=== PATIENT | male | born 1965 | race Caucasian/White ===

== ENCOUNTER 2017-01-31 13:39 | Emergency (ER) | payer MEDICAID ==
--- NOTE | 2017-01-31 13:57 | EDM.PDOC ---
ED HPI GENERAL MEDICAL PROBLEM - General Chief Complaint: Drug or Alcohol Abuse Stated Complaint: ANXIETY, ALCOHOL ABUSE & WITHDRAWALS Time Seen by Provider: 01/31/17 13:55 Source of Information: Reports: Patient, Family (), Old Records, RN, RN Notes Reviewed History Limitations: Reports: No Limitations - History of Present Illness Onset: Gradual Duration: Day(s): Location: Reports: Generalized Severity: Severe Improves with: Reports: None Worsens with: Reports: None Context: Reports: Other (recent alcohol binge) Associated Symptoms: Reports: No Other Symptoms - Related Data Allergies Allergy/AdvReac Type Severity Reaction Status Date / Time No Known Allergies Allergy Verified 06/04/16 06:40 Home Meds: Home Meds atorvaSTATin [Lipitor] 10 mg PO DAILY 10/02/13 [History] metFORMIN [Glucophage] 1,000 mg PO BID 10/02/13 [History] Atenolol [Tenormin] 50 mg PO DAILY 04/01/14 [History] Omeprazole [Omeprazole] 20 mg PO BID 04/01/14 [History] Jennings Flavor [Jennings Concentrate] 1 cap PO DAILY 05/31/16 [History] Hydrochlorothiazide 25 mg PO DAILY 05/31/16 [History] Losartan Potassium 100 mg PO DAILY 05/31/16 [History] QUEtiapine Fumarate [Quetiapine Fumarate] 150 mg PO BEDTIME 05/31/16 [History] Past Medical History Other HEENT History: reading glasses Cardiovascular History: Reports: High Cholesterol, Hypertension Respiratory History: Reports: None Gastrointestinal History: Reports: Hiatal Hernia, Other (See Below) Other Gastrointestinal History: DUNN ESOPHAGUS, alcoholic hepatitis Genitourinary History: Reports: None Musculoskeletal History: Reports: Arthritis, Other (See Below) Other Musculoskeletal History: HX OF ACROMIOCLAVICULAR JOINT SEPERATION; DEGENERATIVE DISC DISEASE, LUMBAR Neurological History: Reports: None Psychiatric History: Reports: Addiction, Depression, Panic Attack, Other (See Below) Other Psychiatric History: HX OF ALCOHOL AND TOBACCO HABITUATION Endocrine/Metabolic History: Reports: Diabetes, Type II, Obesity/BMI 30+ Hematologic History: Reports: Other (See Below) Other Hematologic History: THROMBOCYTOPENIA Immunologic History: Reports: None Oncologic (Cancer) History: Reports: None Dermatologic History: Reports: None - Infectious Disease History Infectious Disease History: Reports: Chicken Pox - Past Surgical History HEENT Surgical History: Reports: None Cardiovascular Surgical History: Reports: None Respiratory Surgical History: Reports: None GI Surgical History: Reports: None, EGD Male Surgical History: Reports: None Musculoskeletal Surgical History: Reports: None Social & Family History - Family History Family Medical History: Unobtainable - Tobacco Use Smoking Status *Q: Former Smoker Years of Tobacco use: 40 Packs/Tins Daily: 0.5 Second Hand Smoke Exposure: No - Caffeine Use Caffeine Use: Reports: Coffee - Alcohol Use Days Per Week of Alcohol Use: 7 Number of Drinks Per Day: 7 Total Drinks Per Week: 49 - Recreational Drug Use Recreational Drug Use: No Drug Use in Last 12 Months: No Recreational Drug Type: Reports: Marijuana/Hashish Recreational Drug Use Frequency: Not Used In Over 1 Month - Living Situation & Occupation Living situation: Reports: Occupation: Unemployed ED ROS GENERAL - Review of Systems Review Of Systems: ROS reveals no pertinent complaints other than HPI. ED EXAM, GENERAL - Physical Exam Exam: See Below Exam Limited By: No Limitations General Appearance: Anxious, Other (chronically ill appearing) Eye Exam: Bilateral Eye: Normal Inspection Ears: Normal External Exam, Hearing Grossly Normal Nose: Normal Inspection, Normal Mucosa, No Blood Throat/Mouth: Normal Inspection, Normal Lips, Normal Gums, Normal Oropharynx, Normal Voice, No Airway Compromise Head: Atraumatic, Normocephalic Neck: Normal Inspection, Supple, Non-Tender, Full Range of Motion Respiratory/Chest: No Respiratory Distress, Lungs Clear, No Accessory Muscle Use , Decreased Breath Sounds Cardiovascular: Regular Rate, Rhythm, Tachycardia GI/Abdominal: Soft, Non-Tender, No Distention, No Abnormal Bruit, Abnormal Bowel Sounds (slightly hyperactive). No: Guarding, Rigid, Rebound (Male) Exam: Deferred Rectal (Males) Exam: Deferred Back Exam: Normal Inspection, Full Range of Motion. No: CVA Tenderness (L), CVA Tenderness (R) Extremities: Normal Inspection, Normal Range of Motion, Non-Tender, Normal Capillary Refill, No Pedal Edema Neurological: Alert, Oriented, CN II-XII Intact, Normal Cognition, Normal Gait, No Motor/Sensory Deficits, Other (slight tremor of B/L upper extremities) Psychiatric: Anxious Skin Exam: Warm, Dry, Intact, Normal Color, No Rash Course - Vital Signs Last Recorded V/S: Last Vital Signs Temp 36.9 C 01/31/17 13:55 Pulse 87 01/31/17 13:55 Resp 16 01/31/17 13:55 BP 150/89 H 01/31/17 13:55 Pulse Ox 99 01/31/17 13:55 - Orders/Labs/Meds Orders: Active Orders 24 hr Category Date Time Status Peripheral IV Care [RC] . DIRECTED Care 01/31/17 14:03 Active Sodium Chloride 0.9% [Saline Flush] Med 01/31/17 14:03 Active 10 ml FLUSH ASDIRECTED PRN Peripheral IV Insertion Adult [OM.PC] Stat Oth 01/31/17 14:03 Ordered Medication Orders Sodium Chloride (Saline Flush) 10 ml FLUSH ASDIRECTED PRN PRN Reason: Keep Vein Open Last Admin: 01/31/17 15:05 Dose: 10 ml Labs: Laboratory Tests 01/31/17 01/31/17 01/31/17 Range/Units 14:09 14:09 14:12 WBC 9.6 (5.0-10.0) 10^3/uL RBC 4.64 (4.6-6.2) 10^6/uL Hgb 15.1 (14.0-18.0) g/dL Hct 42.6 (40.0-54.0) % MCV 91.8 (80-100) fL MCH 32.5 (27.0-34.0) pg MCHC 35.4 H (33.0-35.0) g/dL Plt Count 203 (150-450) 10^3/uL Neut % (Auto) 58.1 (42.2-75.2) % Lymph % (Auto) 31.9 (20.5-50.1) % [place] % (Auto) 8.0 (2-8) % Eos % (Auto) 1.4 (1.0-3.0) % Baso % (Auto) 0.6 (0.0-1.0) % Sodium (135-145) mmol/L Potassium (3.6-5.0) mmol/L Chloride (101-111) mmol/L Carbon Dioxide (21.0-31.0) mmol/L Anion Gap BUN (7-18) mg/dL Creatinine (0.6-1.3) mg/dL Est Cr Clr Drug Dosing mL/min Estimated GFR (MDRD) BUN/Creatinine Ratio Glucose (74-105) mg/dL Calcium (8.4-10.2) mg/dl Total Bilirubin (0.2-1.0) mg/dL AST (10-42) IU/L ALT (10-60) IU/L Alkaline Phosphatase (42-121) IU/L Total Protein (6.7-8.2) g/dl Albumin (3.2-5.5) g/dl Globulin Albumin/Globulin Ratio Amylase (28-100) U/L Lipase (22-51) U/L Urine Color Dark yellow (YELLOW) Urine Appearance Slightly cloudy (CLEAR) Urine pH 8.5 (5.0-9.0) Ur Specific Hoffman 1.015 (1.005-1.030) Urine Protein 100 H (NEGATIVE) Urine Glucose (UA) Negative (NEGATIVE) Urine Ketones 15 H (NEGATIVE) Urine Occult Blood Negative (NEGATIVE) Urine Nitrite Negative (NEGATIVE) Urine Bilirubin Small H (NEGATIVE) Urine Urobilinogen 1.0 (0.2-1.0) mg/dL Ur Leukocyte Esterase Negative (NEGATIVE) Urine RBC 0-5 /HPF Urine WBC 0-5 (0-5/HPF) /HPF Ur Epithelial Cells Rare /HPF Amorphous Sediment Rare (0/HPF) /HPF Urine Bacteria Not seen (0-FEW/HPF) /HPF Urine Mucus Few H /LPF Urine Opiates Screen Negative (NEGATIVE) Ur Oxycodone Screen Negative (NEGATIVE) Urine Methadone Screen Negative (NEGATIVE) Ur Barbiturates Screen Negative (NEGATIVE) U Tricyclic Antidepress Negative (NEGATIVE) Ur Phencyclidine Scrn Negative (NEGATIVE) Ur Amphetamine Screen Negative (NEGATIVE) U Methamphetamines Scrn Negative (NEGATIVE) Urine MDMA Screen Negative (NEGATIVE) U Benzodiazepines Scrn Negative (NEGATIVE) Urine Cocaine Screen Negative (NEGATIVE) U Marijuana (THC) Screen Positive H (NEGATIVE) Ethyl Alcohol mg/dL 01/31/17 Range/Units 14:12 WBC (5.0-10.0) 10^3/uL RBC (4.6-6.2) 10^6/uL Hgb (14.0-18.0) g/dL Hct (40.0-54.0) % MCV (80-100) fL MCH (27.0-34.0) pg MCHC (33.0-35.0) g/dL Plt Count (150-450) 10^3/uL Neut % (Auto) (42.2-75.2) % Lymph % (Auto) (20.5-50.1) % [place] % (Auto) (2-8) % Eos % (Auto) (1.0-3.0) % Baso % (Auto) (0.0-1.0) % Sodium 140 (135-145) mmol/L Potassium 3.7 (3.6-5.0) mmol/L Chloride 99 L (101-111) mmol/L Carbon Dioxide 21.0 (21.0-31.0) mmol/L Anion Gap 23.7 BUN 13 (7-18) mg/dL Creatinine 1.1 (0.6-1.3) mg/dL Est Cr Clr Drug Dosing 78.56 mL/min Estimated GFR (MDRD) > 60 BUN/Creatinine Ratio 11.81 Glucose 162 H (74-105) mg/dL Calcium 9.0 (8.4-10.2) mg/dl Total Bilirubin 0.6 (0.2-1.0) mg/dL AST 49 H (10-42) IU/L ALT 34 (10-60) IU/L Alkaline Phosphatase 58 (42-121) IU/L Total Protein 7.0 (6.7-8.2) g/dl Albumin 4.2 (3.2-5.5) g/dl Globulin 2.8 Albumin/Globulin Ratio 1.50 Amylase 107 H (28-100) U/L Lipase 74 H (22-51) U/L Urine Color (YELLOW) Urine Appearance (CLEAR) Urine pH (5.0-9.0) Ur Specific Hoffman (1.005-1.030) Urine Protein (NEGATIVE) Urine Glucose (UA) (NEGATIVE) Urine Ketones (NEGATIVE) Urine Occult Blood (NEGATIVE) Urine Nitrite (NEGATIVE) Urine Bilirubin (NEGATIVE) Urine Urobilinogen (0.2-1.0) mg/dL Ur Leukocyte Esterase (NEGATIVE) Urine RBC /HPF Urine WBC (0-5/HPF) /HPF Ur Epithelial Cells /HPF Amorphous Sediment (0/HPF) /HPF Urine Bacteria (0-FEW/HPF) /HPF Urine Mucus /LPF Urine Opiates Screen (NEGATIVE) Ur Oxycodone Screen (NEGATIVE) Urine Methadone Screen (NEGATIVE) Ur Barbiturates Screen (NEGATIVE) U Tricyclic Antidepress (NEGATIVE) Ur Phencyclidine Scrn (NEGATIVE) Ur Amphetamine Screen (NEGATIVE) U Methamphetamines Scrn (NEGATIVE) Urine MDMA Screen (NEGATIVE) U Benzodiazepines Scrn (NEGATIVE) Urine Cocaine Screen (NEGATIVE) U Marijuana (THC) Screen (NEGATIVE) Ethyl Alcohol 84 mg/dL Meds: Medications Generic Name Dose Route Start Last Admin Trade Name Freq PRN Reason Stop Dose Admin Sodium Chloride 10 ml 01/31/17 14:03 01/31/17 15:05 Saline Flush FLUSH 10 ml ASDIRECTED PRN Administration Keep Vein Open Discontinued Medications Generic Name Dose Route Start Last Admin Trade Name Freq PRN Reason Stop Dose Admin Multivitamins/Minerals 10 ml/ 1,011.2 mls @ 999 mls/hr 01/31/17 14:03 15:07 Thiamine HCl 100 mg/ Folic IV 01/31/17 15:03 999 mls/hr Acid 1 mg/ Lactated Ringer's .BOLUS ONE Administration Lorazepam 2 mg 01/31/17 14:09 01/31/17 15:03 Ativan IVPUSH 01/31/17 14:10 2 mg ONETIME ONE Administration Ondansetron HCl 4 mg 01/31/17 14:09 01/31/17 15:06 Zofran IV 01/31/17 14:10 4 mg ONETIME ONE Administration Departure - Departure Time of Disposition: 15:51 Disposition: Home, Self-Care 01 Condition: Fair Clinical Impression: Alcohol abuse, Anxiety Alcohol withdrawal syndrome Qualifiers: Complication of substance-induced condition: uncomplicated Qualified Code(s): F10.230 - Alcohol dependence with withdrawal, uncomplicated - Discharge Information Instructions: Alcohol Use Disorder, Alcohol Intoxication, [id number] Forms: ED Department Discharge Additional Instructions: Rx: Librium 25mg *Do not drive while under the influence of this medication. Rx: Zofran 4mg Abstain from consuming alcohol. Follow up in clinic this week with your doctor for recheck. Return to ER if worse at any time. - My Orders Last 24 Hours: My Active Orders 01/31/17 14:03 Peripheral IV Care [RC] . DIRECTED Sodium Chloride 0.9% [Saline Flush] 10 ml FLUSH ASDIRECTED PRN Peripheral IV Insertion Adult [OM.PC] Stat - Assessment/Plan Last 24 Hours: My Active Orders 09/11/17 14:03 Peripheral IV Care [RC] . DIRECTED Sodium Chloride 0.9% [Saline Flush] 10 ml FLUSH ASDIRECTED PRN Peripheral IV Insertion Adult [OM.PC] Stat
[2017-01-31 13:59] VITALS: BP 150/89
[2017-01-31] MEDS ORDERED: MVI, Adult with Vitamin K 10 ML, Thiamine 100 MG, Folic Acid 1 MG in Lactated Ringers 1... IV ONE ×4 (14:03)
[2017-01-31] MEDS ORDERED: Sodium Chloride 0.9% 10 ML Syringe FLUSH PRN (14:03)
[2017-01-31] MEDS ORDERED: Ondansetron 4 MG/2 ML SDV IV ONE (14:09)
[2017-01-31] MEDS ORDERED: LORazepam 2 MG/ML Syringe IVPUSH ONE (14:09)
[2017-01-31 14:44] LABS: CHLORIDE,CL 99 mmol/L (101-111); SODIUM,NA 140 mmol/L (135-145)
== END 2017-01-31 16:25 | disposition home or self-care (01) ==
LOC: DL.ED 13:39
DX: F10.230 Alcohol dependence with withdrawal, uncomplicated (principal); F41.9 Anxiety disorder, unspecified; E78.00 Pure hypercholesterolemia, unspecified; I10 Essential (primary) hypertension; M19.90 Unspecified osteoarthritis, unspecified site; E11.9 Type 2 diabetes mellitus without complications; E66.9 Obesity, unspecified; Z79.899 Other long term (current) drug therapy; Z87.891 Personal history of nicotine dependence
CPT/HCPCS: 36415; 80053; 80305; 81001; 82150; 83690; 85025; 96365; 96375; 99284; G0480; J2060; J2405; J3411; J7050; J7120; J3490

== ENCOUNTER 2017-03-19 05:14 | Emergency (ER) | payer MEDICAID ==
[2017-03-19] MEDS ORDERED: Ondansetron 4 MG/2 ML SDV IV ONE (05:27)
[2017-03-19] MEDS ORDERED: MVI, Adult with Vitamin K 10 ML, Thiamine 100 MG, Folic Acid 1 MG in Lactated Ringers 1... IV ONE ×4 (05:33)
--- NOTE | 2017-03-19 05:35 | EDM.PDOC ---
ED HPI GENERAL MEDICAL PROBLEM - General Chief Complaint: Gastrointestinal Problem Stated Complaint: VOMITING Time Seen by Provider: 03/19/17 05:34 Source of Information: Reports: Patient History Limitations: Reports: No Limitations - History of Present Illness INITIAL COMMENTS - FREE TEXT/NARRATIVE: going through alcohol detox. Epigastric Pain Score (Numeric/FACES): 7 - Related Data Allergies Allergy/AdvReac Type Severity Reaction Status Date / Time No Known Allergies Allergy Verified 03/19/17 05:26 Home Meds: Home Meds atorvaSTATin [Lipitor] 10 mg PO DAILY 10/02/13 [History] metFORMIN [Glucophage] 1,000 mg PO BID 10/02/13 [History] Atenolol [Tenormin] 50 mg PO DAILY 04/01/14 [History] Omeprazole [Omeprazole] 20 mg PO BID 04/01/14 [History] Jennings Flavor [Jennings Concentrate] 1 cap PO DAILY 05/31/16 [History] Hydrochlorothiazide 25 mg PO DAILY 05/31/16 [History] Losartan Potassium 100 mg PO DAILY 05/31/16 [History] QUEtiapine Fumarate [Quetiapine Fumarate] 150 mg PO BEDTIME 05/31/16 [History] Past Medical History Other HEENT History: reading glasses Cardiovascular History: Reports: High Cholesterol, Hypertension Respiratory History: Reports: None Gastrointestinal History: Reports: Hiatal Hernia, Other (See Below) Other Gastrointestinal History: DUNN ESOPHAGUS, alcoholic hepatitis Genitourinary History: Reports: None Musculoskeletal History: Reports: Arthritis, Other (See Below) Other Musculoskeletal History: HX OF ACROMIOCLAVICULAR JOINT SEPERATION; DEGENERATIVE DISC DISEASE, LUMBAR Neurological History: Reports: None Psychiatric History: Reports: Addiction, Depression, Panic Attack, Other (See Below) Other Psychiatric History: HX OF ALCOHOL AND TOBACCO HABITUATION Endocrine/Metabolic History: Reports: Diabetes, Type II, Obesity/BMI 30+ Hematologic History: Reports: Other (See Below) Other Hematologic History: THROMBOCYTOPENIA Immunologic History: Reports: None Oncologic (Cancer) History: Reports: None Dermatologic History: Reports: None - Infectious Disease History Infectious Disease History: Reports: Chicken Pox - Past Surgical History HEENT Surgical History: Reports: None Cardiovascular Surgical History: Reports: None Respiratory Surgical History: Reports: None GI Surgical History: Reports: None, EGD Male Surgical History: Reports: None Musculoskeletal Surgical History: Reports: None Social & Family History - Family History Family Medical History: Unobtainable - Tobacco Use Smoking Status *Q: Current Every Day Smoker Years of Tobacco use: 40 Packs/Tins Daily: 10 Second Hand Smoke Exposure: No - Caffeine Use Caffeine Use: Reports: Coffee, Tea - Alcohol Use Days Per Week of Alcohol Use: 7 Number of Drinks Per Day: 7 Total Drinks Per Week: 49 Date of Last Drink: 03/18/17 - Recreational Drug Use Recreational Drug Use: Yes Drug Use in Last 12 Months: No Recreational Drug Type: Reports: Marijuana/Hashish Recreational Drug Use Frequency: Binges - Living Situation & Occupation Living situation: Reports: Occupation: Unemployed ED ROS GENERAL - Review of Systems Review Of Systems: ROS reveals no pertinent complaints other than HPI. ED EXAM, GI/ABD - Physical Exam Exam: See Below Exam Limited By: No Limitations General Appearance: Alert, WD/WN, Anxious, Mild Distress Ears: Hearing Grossly Normal Throat/Mouth: Normal Voice, No Airway Compromise Head: Atraumatic Neck: Non-Tender, Full Range of Motion Respiratory/Chest: No Respiratory Distress Cardiovascular: Regular Rate, Rhythm GI/Abdominal Exam: Soft, Tender, Other (epig). No: Distended, Guarding, Rigid, Rebound Neurological: Alert, Oriented, Normal Cognition, Normal Gait, No Motor/Sensory Deficits Psychiatric: Flat Affect Skin Exam: Warm, Dry, Normal Color Lymphatic: No Adenopathy Course - Vital Signs Last Recorded V/S: Last Vital Signs Temp 35.4 C 03/19/17 05:16 Pulse 112 H 03/19/17 05:16 Resp 21 H 03/19/17 05:16 BP 153/100 H 03/19/17 05:16 Pulse Ox 99 03/19/17 05:16 - Orders/Labs/Meds Labs: Laboratory Tests 03/19/17 03/19/17 Range/Units 05:20 05:20 WBC 11.8 H (5.0-10.0) 10^3/uL RBC 5.13 (4.6-6.2) 10^6/uL Hgb 16.5 (14.0-18.0) g/dL Hct 46.9 (40.0-54.0) % MCV 91.4 (80-100) fL MCH 32.2 (27.0-34.0) pg MCHC 35.2 H (33.0-35.0) g/dL Plt Count 287 D (150-450) 10^3/uL Neut % (Auto) 49.0 (42.2-75.2) % Lymph % (Auto) 40.8 (20.5-50.1) % [place] % (Auto) 8.0 (2-8) % Eos % (Auto) 1.4 (1.0-3.0) % Baso % (Auto) 0.8 (0.0-1.0) % Sodium 144 (135-145) mmol/L Potassium 3.3 L (3.6-5.0) mmol/L Chloride 98 L (101-111) mmol/L Carbon Dioxide 25.0 (21.0-31.0) mmol/L Anion Gap 24.3 BUN 13 (7-18) mg/dL Creatinine 1.1 (0.6-1.3) mg/dL Est Cr Clr Drug Dosing 78.56 mL/min Estimated GFR (MDRD) > 60 BUN/Creatinine Ratio 11.81 Glucose 145 H (74-105) mg/dL Calcium 10.4 H (8.4-10.2) mg/dl Total Bilirubin 1.0 (0.2-1.0) mg/dL AST 88 H (10-42) IU/L ALT 78 H (10-60) IU/L Alkaline Phosphatase 62 (42-121) IU/L Total Protein 8.0 (6.7-8.2) g/dl Albumin 4.9 (3.2-5.5) g/dl Globulin 3.1 Albumin/Globulin Ratio 1.58 Ethyl Alcohol 151 mg/dL Meds: Medications Discontinued Medications Generic Name Dose Route Start Last Admin Trade Name Freq PRN Reason Stop Dose Admin Chlordiazepoxide HCl 25 mg 03/19/17 06:39 Librium PO 03/19/17 06:40 ONETIME ONE Multivitamins/Minerals 10 ml/ 1,011.2 mls @ 999 mls/hr 03/19/17 05:33 05:46 Thiamine HCl 100 mg/ Folic IV 03/19/17 06:33 999 mls/hr Acid 1 mg/ Lactated Ringer's .BOLUS ONE Administration Metoclopramide HCl 10 mg 03/19/17 06:09 03/19/17 06:14 Reglan IVPUSH 03/19/17 06:10 10 mg ONETIME ONE Administration Ondansetron HCl 4 mg 03/19/17 05:27 03/19/17 05:32 Zofran IV 03/19/17 05:28 4 mg ONETIME ONE Administration - Re-Assessments/Exams Free Text/Narrative Re-Assessment/Exam: 03/19/17 06:40 results discussed with pt who is feeling much better post IV fluids. states needs to go home to care for child. Departure - Departure Time of Disposition: 06:41 Disposition: Home, Self-Care 01 Condition: Good Clinical Impression: Vomiting, Alcohol abuse - Discharge Information Instructions: Dehydration, Adult, [id number] Forms: ED Department Discharge Additional Instructions: 1) avoid solid foods next 48 hours 2) liquid diet 3) take tylenol as needed for headache 4) follow up at clinic rx given; librium 25mg tid x 12 reglan 10mg tid prn x 12
[2017-03-19 05:48] LABS: CHLORIDE,CL 98 mmol/L (101-111); SODIUM,NA 144 mmol/L (135-145)
[2017-03-19] MEDS ORDERED: Metoclopramide 10 MG/2 ML SDV IVPUSH ONE (06:09)
[2017-03-19] MEDS ORDERED: chlordiazePOXIDE 25 MG Cap PO ONE (06:39)
[2017-03-19 06:54] VITALS: BP 135/99
== END 2017-03-19 06:55 | disposition home or self-care (01) ==
LOC: DL.ED 05:14
DX: F10.10 Alcohol abuse, uncomplicated (principal); I10 Essential (primary) hypertension; F17.210 Nicotine dependence, cigarettes, uncomplicated; Z79.899 Other long term (current) drug therapy; Z79.84 Long term (current) use of oral hypoglycemic drugs
CPT/HCPCS: 36415; 80053; 85025; 96365; 96375; 99284; A9270; G0480; J2405; J2765; J3411; J7120; J3490

== ENCOUNTER 2017-11-16 06:50 | Observation (INO) | payer MEDICAID ==
[2017-11-16] MEDS ORDERED: Sodium Chloride 0.9% 10 ML Syringe FLUSH PRN (07:09)
[2017-11-16] MEDS ORDERED: Sodium Chloride 0.9% 1,000 ML IV ONE (07:10)
[2017-11-16] MEDS ORDERED: LORazepam 1 MG Tab PO ONE (07:25)
--- NOTE | 2017-11-16 07:25 | EDM.PDOCBH ---
ED HPI GENERAL MEDICAL PROBLEM - General Chief Complaint: Drug or Alcohol Abuse Stated Complaint: NOT FEELING GOOD. FEELS LIKE GOING TO STOP BREATHI Time Seen by Provider: 11/16/17 07:20 Source of Information: Reports: Patient, RN, RN Notes Reviewed History Limitations: Reports: No Limitations - History of Present Illness INITIAL COMMENTS - FREE TEXT/NARRATIVE: Patient presents to the ER with c/o headache, anxious, and feeling as though he will stop breathing if he falls asleep. Patient states he binge drinks, and recently was on a drinking binge of 4 days. He states last drink was yesterday morning. Patient admits to N/V, headache, SOB. Denies chest pain, diarrhea, fever or chills. Onset: Today, Sudden Duration: Constant Location: Reports: Head Headache Pain Score (Numeric/FACES): 10 - Related Data Allergies Allergy/AdvReac Type Severity Reaction Status Date / Time No Known Allergies Allergy Verified 11/16/17 06:57 Home Meds: Home Meds atorvaSTATin [Lipitor] 10 mg PO DAILY 10/02/13 [History] metFORMIN [Glucophage] 1,000 mg PO BID 10/02/13 [History] Atenolol [Tenormin] 50 mg PO DAILY 04/01/14 [History] Omeprazole 20 mg PO BID 04/01/14 [History] Jennings Flavor [Jennings Concentrate] 1 cap PO DAILY 05/31/16 [History] Losartan Potassium 100 mg PO DAILY 05/31/16 [History] Past Medical History Other HEENT History: reading glasses Cardiovascular History: Reports: High Cholesterol, Hypertension Respiratory History: Reports: None Gastrointestinal History: Reports: Hiatal Hernia, Other (See Below) Other Gastrointestinal History: DUNN ESOPHAGUS, alcoholic hepatitis Genitourinary History: Reports: None Musculoskeletal History: Reports: Arthritis, Other (See Below) Other Musculoskeletal History: HX OF ACROMIOCLAVICULAR JOINT SEPERATION; DEGENERATIVE DISC DISEASE, LUMBAR Neurological History: Reports: None Psychiatric History: Reports: Addiction, Depression, Panic Attack, Other (See Below) Other Psychiatric History: HX OF ALCOHOL AND TOBACCO HABITUATION Endocrine/Metabolic History: Reports: Diabetes, Type II Hematologic History: Reports: Other (See Below) Other Hematologic History: THROMBOCYTOPENIA Immunologic History: Reports: None Oncologic (Cancer) History: Reports: None Dermatologic History: Reports: None - Infectious Disease History Infectious Disease History: Reports: Chicken Pox - Past Surgical History HEENT Surgical History: Reports: None Cardiovascular Surgical History: Reports: None Respiratory Surgical History: Reports: None GI Surgical History: Reports: None, EGD Male Surgical History: Reports: None Musculoskeletal Surgical History: Reports: Shoulder Replacement Social & Family History - Family History Family Medical History: Unobtainable - Tobacco Use Smoking Status *Q: Current Every Day Smoker Years of Tobacco use: 40 Packs/Tins Daily: 1 - Caffeine Use Caffeine Use: Reports: Coffee, Tea - Recreational Drug Use Recreational Drug Use: Yes Drug Use in Last 12 Months: Yes Recreational Drug Type: Reports: Marijuana/Hashish Recreational Drug Use Frequency: Rarely - Living Situation & Occupation Living situation: Reports: Occupation: Unemployed ED ROS GENERAL - Review of Systems Review Of Systems: ROS reveals no pertinent complaints other than HPI. ED EXAM, BEHAVIORAL HEALTH - Physical Exam Exam: See Below Exam Limited By: No Limitations General Appearance: Alert, WD/WN, Mild Distress Eye Exam: Bilateral Eye: EOMI, Normal Inspection Ears: Normal External Exam, Hearing Grossly Normal Nose: Normal Inspection Throat/Mouth: Normal Inspection, Normal Voice, No Airway Compromise Head: Atraumatic, Normocephalic Neck: Normal Inspection, Supple, Non-Tender, Full Range of Motion Respiratory/Chest: No Respiratory Distress, Lungs Clear, Normal Breath Sounds, No Accessory Muscle Use, Chest Non-Tender Cardiovascular: Normal Peripheral Pulses, Regular Rate, Rhythm, No Edema, No Gallop, No JVD, No Murmur, No Rub GI/Abdominal: Normal Bowel Sounds, Soft, Non-Tender (Male) Exam: Deferred Rectal (Males) Exam: Deferred Back Exam: Normal Inspection, Full Range of Motion Extremities: Normal Inspection, Normal Range of Motion, Non-Tender, No Pedal Edema, Normal Capillary Refill Neurological: Alert, Normal Cognition, Oriented x 3 Psychiatric: Alert, Normal Cognition, Agitated Skin Exam: Warm, Dry, Intact, Normal color, No rash COURSE, BEHAVIORAL HEALTH COMP - Course Vital Signs: Last Vital Signs Temp 98 F 11/16/17 06:53 Pulse 73 11/16/17 06:53 Resp 20 11/16/17 06:53 BP 209/108 H 11/16/17 06:53 Pulse Ox 98 11/16/17 06:53 Orders, Labs, Meds: Active Orders 24 hr Category Date Time Status Peripheral IV Care [RC] . DIRECTED Care 11/16/17 07:10 Active DRUG SCREEN URINE BIORAD [URCHEM] Stat Lab 11/16/17 07:35 Ordered UA W/MICROSCOPIC [URIN] Stat Lab 11/16/17 07:35 Ordered Sodium Chloride 0.9% [Saline Flush] Med 11/16/17 07:09 Active 10 ml FLUSH ASDIRECTED PRN Peripheral IV Insertion Adult [OM.PC] Stat Oth 11/16/17 07:10 Ordered Medication Orders Sodium Chloride (Saline Flush) 10 ml FLUSH ASDIRECTED PRN PRN Reason: Keep Vein Open Last Admin: 11/16/17 07:12 Dose: 10 ml Laboratory Tests 11/16/17 11/16/17 11/16/17 Range/Units 07:11 07:11 07:35 WBC 8.0 (5.0-10.0) 10^3/uL RBC 4.35 L (4.6-6.2) 10^6/uL Hgb 14.2 D (14.0-18.0) g/dL Hct 39.0 L (40.0-54.0) % MCV 89.7 (80-100) fL MCH 32.6 (27.0-34.0) pg MCHC 36.4 H (33.0-35.0) g/dL Plt Count 177 D (150-450) 10^3/uL Neut % (Auto) 63.6 (42.2-75.2) % Lymph % (Auto) 23.5 (20.5-50.1) % [place] % (Auto) 11.2 H (2-8) % Eos % (Auto) 1.0 (1.0-3.0) % Baso % (Auto) 0.7 (0.0-1.0) % Sodium 138 (135-145) mmol/L Potassium 3.2 L (3.6-5.0) mmol/L Chloride 99 L (101-111) mmol/L Carbon Dioxide 27.0 (21.0-31.0) mmol/L Anion Gap 15.2 BUN 9 (7-18) mg/dL Creatinine 0.8 (0.6-1.3) mg/dL Est Cr Clr Drug Dosing 106.79 mL/min Estimated GFR (MDRD) > 60 BUN/Creatinine Ratio 11.25 Glucose 153 H (74-105) mg/dL Calcium 8.8 D (8.4-10.2) mg/dl Total Bilirubin 1.3 H (0.2-1.0) mg/dL AST 43 H (10-42) IU/L ALT 27 (10-60) IU/L Alkaline Phosphatase 57 (42-121) IU/L Total Protein 6.4 L (6.7-8.2) g/dl Albumin 3.9 (3.2-5.5) g/dl Globulin 2.5 Albumin/Globulin Ratio 1.56 Urine Color Yellow (YELLOW) Urine Appearance Slightly cloudy (CLEAR) Urine pH 8.0 (5.0-9.0) Ur Specific [place] 1.015 (1.005-1.030) Urine Protein Negative (NEGATIVE) Urine Glucose (UA) Negative (NEGATIVE) Urine Ketones Negative (NEGATIVE) Urine Occult Blood Negative (NEGATIVE) Urine Nitrite Negative (NEGATIVE) Urine Bilirubin Negative (NEGATIVE) Urine Urobilinogen 0.2 (0.2-1.0) mg/dL Ur Leukocyte Esterase Negative (NEGATIVE) Urine RBC 0-5 /HPF Urine WBC 0-5 (0-5/HPF) /HPF Ur Epithelial Cells Rare /HPF Urine Bacteria Rare (0-FEW/HPF) /HPF Urine Mucus Rare /LPF Urine Opiates Screen (NEGATIVE) Ur Oxycodone Screen (NEGATIVE) Urine Methadone Screen (NEGATIVE) Ur Barbiturates Screen (NEGATIVE) U Tricyclic Antidepress (NEGATIVE) Ur Phencyclidine Scrn (NEGATIVE) Ur Amphetamine Screen (NEGATIVE) U Methamphetamines Scrn (NEGATIVE) Urine MDMA Screen (NEGATIVE) U Benzodiazepines Scrn (NEGATIVE) Urine Cocaine Screen (NEGATIVE) U Marijuana (THC) Screen (NEGATIVE) Ethyl Alcohol < 5 mg/dL 11/16/17 Range/Units 07:35 WBC (5.0-10.0) 10^3/uL RBC (4.6-6.2) 10^6/uL Hgb (14.0-18.0) g/dL Hct (40.0-54.0) % MCV (80-100) fL MCH (27.0-34.0) pg MCHC (33.0-35.0) g/dL Plt Count (150-450) 10^3/uL Neut % (Auto) (42.2-75.2) % Lymph % (Auto) (20.5-50.1) % [place] % (Auto) (2-8) % Eos % (Auto) (1.0-3.0) % Baso % (Auto) (0.0-1.0) % Sodium (135-145) mmol/L Potassium (3.6-5.0) mmol/L Chloride (101-111) mmol/L Carbon Dioxide (21.0-31.0) mmol/L Anion Gap BUN (7-18) mg/dL Creatinine (0.6-1.3) mg/dL Est Cr Clr Drug Dosing mL/min Estimated GFR (MDRD) BUN/Creatinine Ratio Glucose (74-105) mg/dL Calcium (8.4-10.2) mg/dl Total Bilirubin (0.2-1.0) mg/dL AST (10-42) IU/L ALT (10-60) IU/L Alkaline Phosphatase (42-121) IU/L Total Protein (6.7-8.2) g/dl Albumin (3.2-5.5) g/dl Globulin Albumin/Globulin Ratio Urine Color (YELLOW) Urine Appearance (CLEAR) Urine pH (5.0-9.0) Ur Specific [place] (1.005-1.030) Urine Protein (NEGATIVE) Urine Glucose (UA) (NEGATIVE) Urine Ketones (NEGATIVE) Urine Occult Blood (NEGATIVE) Urine Nitrite (NEGATIVE) Urine Bilirubin (NEGATIVE) Urine Urobilinogen (0.2-1.0) mg/dL Ur Leukocyte Esterase (NEGATIVE) Urine RBC /HPF Urine WBC (0-5/HPF) /HPF Ur Epithelial Cells /HPF Urine Bacteria (0-FEW/HPF) /HPF Urine Mucus /LPF Urine Opiates Screen Negative (NEGATIVE) Ur Oxycodone Screen Negative (NEGATIVE) Urine Methadone Screen Negative (NEGATIVE) Ur Barbiturates Screen Negative (NEGATIVE) U Tricyclic Antidepress Negative (NEGATIVE) Ur Phencyclidine Scrn Negative (NEGATIVE) Ur Amphetamine Screen Negative (NEGATIVE) U Methamphetamines Scrn Negative (NEGATIVE) Urine MDMA Screen Negative (NEGATIVE) U Benzodiazepines Scrn Positive H (NEGATIVE) Urine Cocaine Screen Negative (NEGATIVE) U Marijuana (THC) Screen Positive H (NEGATIVE) Ethyl Alcohol mg/dL Medications Generic Name Dose Route Start Last Admin Trade Name Freq PRN Reason Stop Dose Admin Sodium Chloride 10 ml 11/16/17 07:09 11/16/17 07:12 Saline Flush FLUSH 10 ml ASDIRECTED PRN Administration Keep Vein Open Discontinued Medications Generic Name Dose Route Start Last Admin Trade Name Suni PRN Reason Stop Dose Admin Sodium Chloride 1,000 mls @ 999 mls/hr 11/16/17 07:10 11/16/17 07:12 Normal Saline IV 11/16/17 08:10 999 mls/hr .BOLUS ONE Administration Labetalol HCl 20 mg 11/16/17 08:51 11/16/17 09:14 Normodyne IVPUSH 11/16/17 08:52 20 mg NOW ONE Administration Protocol Lorazepam 1 mg 11/16/17 07:25 11/16/17 07:30 Ativan PO 11/16/17 07:26 1 mg ONETIME ONE Administration Lorazepam 0.5 mg 11/16/17 07:41 11/16/17 07:50 Ativan IVPUSH 11/16/17 07:42 0.5 mg ONETIME ONE Administration Ondansetron HCl 4 mg 11/16/17 07:41 11/16/17 07:48 Zofran IV 11/16/17 07:42 4 mg ONETIME ONE Administration Departure - Departure Time of Disposition: 10:17 Disposition: Refer to Observation Condition: Fair Clinical Impression: Alcohol abuse, Diabetes mellitus type 2, Alcohol withdrawal syndrome, HTN, Essential hypertension, Anxiety, Vomiting - Discharge Information Forms: ED Department Discharge - My Orders Last 24 Hours: My Active Orders 11/16/17 07:09 Sodium Chloride 0.9% [Saline Flush] 10 ml FLUSH ASDIRECTED PRN 11/16/17 07:10 Peripheral IV Care [RC] . DIRECTED Peripheral IV Insertion Adult [OM.PC] Stat 11/16/17 07:35 DRUG SCREEN URINE BIORAD [URCHEM] Stat UA W/MICROSCOPIC [URIN] Stat - Assessment/Plan Last 24 Hours: My Active Orders 11/16/17 07:09 Sodium Chloride 0.9% [Saline Flush] 10 ml FLUSH ASDIRECTED PRN 11/16/17 07:10 Peripheral IV Care [RC] . DIRECTED Peripheral IV Insertion Adult [OM.PC] Stat 11/16/17 07:35 DRUG SCREEN URINE BIORAD [URCHEM] Stat UA W/MICROSCOPIC [URIN] Stat
[2017-11-16 07:38] LABS: CHLORIDE,CL 99 mmol/L (101-111); SODIUM,NA 138 mmol/L (135-145)
[2017-11-16] MEDS ORDERED: Ondansetron 4 MG/2 ML SDV IV ONE (07:41)
[2017-11-16] MEDS ORDERED: LORazepam 2 MG/ML Syringe IVPUSH ONE (07:41)
[2017-11-16] MEDS ORDERED: Labetalol 20 MG/4 ML Syringe IVPUSH ONE (08:51)
[2017-11-16] MEDS ORDERED: Acetaminophen 325 MG Tab PO PRN (11:31)
[2017-11-16] MEDS ORDERED: Ondansetron 4 MG/2 ML SDV IVPUSH PRN (11:31)
[2017-11-16] MEDS ORDERED: LORazepam 1 MG Tab PO PRN (11:37)
[2017-11-16] MEDS ORDERED: hydrALAZINE 20 MG/ML SDV IVPUSH PRN (11:38)
[2017-11-16] MEDS ORDERED: Pantoprazole 40 MG Vial IVPUSH SCH (11:45)
--- NOTE | 2017-11-16 11:48 | PCM.HP ---
H&P History of Present Illness - General Date of Service: 11/16/17 Admit Problem/Dx: Admission Diagnosis/Problem Admission Diagnosis/Problem Alcohol abuse Source of Information: Patient History Limitations: Reports: No Limitations - History of Present Illness Initial Comments - Free Text/Narative: The patient presented to the emergency room with complaint of nausea and vomiting. He indicated that for the past 5 days he has been on an alcohol binge. Patient is a binge drinker. He would go for several months without alcohol and then go on a binge for about a week. For the past 2 days he has been vomiting has not been able to keep food down. He has associated generalized body malaise and tremulous. He has been feeling anxious and has not been able to sleep thinking that if he goes to bed he would not wake up. Denies abdominal pain at this point. Denies diarrhea. Denies chest pain. No cough and no wheezing. Patient was seen in the emergency room and noted to have significantly elevated blood pressure. He was given intravenous labetalol and blood pressure remained elevated. He continues to feel anxious hence was referred to the hospital for admission. Symptom Onset Date: 11/14/17 Severity: Moderate Associated Symptoms: Reports: Loss of Appetite, Malaise, Nausea/Vomiting Headache Pain Score (Numeric/FACES): 10 - Related Data Allergies/Adverse Reactions: Allergies Allergy/AdvReac Type Severity Reaction Status Date / Time No Known Allergies Allergy Verified 11/16/17 11:22 Home Medications: Home Meds atorvaSTATin [Lipitor] 10 mg PO DAILY 10/02/13 [History] metFORMIN [Glucophage] 1,000 mg PO BID 10/02/13 [History] Atenolol [Tenormin] 50 mg PO DAILY 04/01/14 [History] Omeprazole 20 mg PO BID 04/01/14 [History] Jennings Flavor [Jennings Concentrate] 1 cap PO DAILY 05/31/16 [History] Losartan Potassium 100 mg PO DAILY 05/31/16 [History] Past Medical History Other HEENT History: reading glasses Cardiovascular History: Reports: High Cholesterol, Hypertension Respiratory History: Reports: None Gastrointestinal History: Reports: Hiatal Hernia, Other (See Below) Other Gastrointestinal History: DUNN ESOPHAGUS, alcoholic hepatitis Genitourinary History: Reports: None Musculoskeletal History: Reports: Arthritis, Other (See Below) Other Musculoskeletal History: HX OF ACROMIOCLAVICULAR JOINT SEPERATION; DEGENERATIVE DISC DISEASE, LUMBAR Neurological History: Reports: None Psychiatric History: Reports: Addiction, Depression, Panic Attack, Other (See Below) Other Psychiatric History: HX OF ALCOHOL AND TOBACCO HABITUATION Endocrine/Metabolic History: Reports: Diabetes, Type II Hematologic History: Reports: Other (See Below) Other Hematologic History: THROMBOCYTOPENIA Immunologic History: Reports: None Oncologic (Cancer) History: Reports: None Dermatologic History: Reports: None - Infectious Disease History Infectious Disease History: Reports: Chicken Pox - Past Surgical History HEENT Surgical History: Reports: None Cardiovascular Surgical History: Reports: None Respiratory Surgical History: Reports: None GI Surgical History: Reports: None, EGD Male Surgical History: Reports: None Musculoskeletal Surgical History: Reports: Shoulder Replacement Social & Family History - Family History Family Medical History: Noncontributory - Tobacco Use Smoking Status *Q: Current Every Day Smoker Years of Tobacco use: 40 Packs/Tins Daily: 1 Used Tobacco, but Quit: No - Caffeine Use Caffeine Use: Reports: Coffee, Tea - Alcohol Use Date of Last Drink: 11/15/17 Time of Last Drink: 11:00 - Recreational Drug Use Recreational Drug Use: Yes Drug Use in Last 12 Months: Yes Recreational Drug Type: Reports: Marijuana/Hashish Recreational Drug Use Frequency: Monthly - Living Situation & Occupation Living situation: Reports: Occupation: Unemployed H&P Review of Systems - Review of Systems: Review Of Systems: See Below General: Reports: Malaise, Fatigue, Diaphoresis Pulmonary: Reports: No Symptoms Cardiovascular: Reports: No Symptoms Gastrointestinal: Reports: Anorexia, Nausea, Vomiting Genitourinary: Reports: No Symptoms Musculoskeletal: Reports: No Symptoms Skin: Reports: No Symptoms Neurological: Reports: Dizziness, Weakness Hematologic/Lymphatic: Reports: No Symptoms Exam - Exam Exam: See Below - Vital Signs Vital Signs: Last Vital Signs Temp 37.0 C 11/16/17 11:12 Pulse 71 11/16/17 11:12 Resp 20 11/16/17 11:12 BP 192/102 H 11/16/17 11:12 Pulse Ox 99 11/16/17 11:12 Weight: 96.116 kg - Exam General: Alert, Oriented, Cooperative HEENT: PERRLA, Hearing Intact, Mucosa Moist & [place], Nares Patent, Normal Nasal Septum, Posterior Pharynx Clear, Conjunctiva Clear, EOMI, EACs Clear, TMs Clear Neck: Supple, Trachea Midline, 2 Lungs: Clear to Auscultation, Normal Respiratory Effort Cardiovascular: Regular Rate, Regular Rhythm GI/Abdominal Exam: Normal Bowel Sounds, Soft, Non-Tender, No Organomegaly, No Distention, No Abnormal Bruit, No Mass, Pelvis Stable Extremities: Normal Inspection Skin: Warm, Dry, Intact Psychiatric: Anxious - Patient Data Lab Results Last 24 hrs: Laboratory Results - last 24 hr 11/16/17 11/16/17 11/16/17 Range/Units 07:11 07:11 07:35 WBC 8.0 (5.0-10.0) 10^3/uL RBC 4.35 L (4.6-6.2) 10^6/uL Hgb 14.2 D (14.0-18.0) g/dL Hct 39.0 L (40.0-54.0) % MCV 89.7 (80-100) fL MCH 32.6 (27.0-34.0) pg MCHC 36.4 H (33.0-35.0) g/dL Plt Count 177 D (150-450) 10^3/uL Neut % (Auto) 63.6 (42.2-75.2) % Lymph % (Auto) 23.5 (20.5-50.1) % [place] % (Auto) 11.2 H (2-8) % Eos % (Auto) 1.0 (1.0-3.0) % Baso % (Auto) 0.7 (0.0-1.0) % Sodium 138 (135-145) mmol/L Potassium 3.2 L (3.6-5.0) mmol/L Chloride 99 L (101-111) mmol/L Carbon Dioxide 27.0 (21.0-31.0) mmol/L Anion Gap 15.2 BUN 9 (7-18) mg/dL Creatinine 0.8 (0.6-1.3) mg/dL Est Cr Clr Drug Dosing 106.79 mL/min Estimated GFR (MDRD) > 60 BUN/Creatinine Ratio 11.25 Glucose 153 H (74-105) mg/dL POC Glucose (70-105) mg/dl Calcium 8.8 D (8.4-10.2) mg/dl Total Bilirubin 1.3 H (0.2-1.0) mg/dL AST 43 H (10-42) IU/L ALT 27 (10-60) IU/L Alkaline Phosphatase 57 (42-121) IU/L Total Protein 6.4 L (6.7-8.2) g/dl Albumin 3.9 (3.2-5.5) g/dl Globulin 2.5 Albumin/Globulin Ratio 1.56 Urine Color Yellow (YELLOW) Urine Appearance Slightly cloudy (CLEAR) Urine pH 8.0 (5.0-9.0) Ur Specific [place] 1.015 (1.005-1.030) Urine Protein Negative (NEGATIVE) Urine Glucose (UA) Negative (NEGATIVE) Urine Ketones Negative (NEGATIVE) Urine Occult Blood Negative (NEGATIVE) Urine Nitrite Negative (NEGATIVE) Urine Bilirubin Negative (NEGATIVE) Urine Urobilinogen 0.2 (0.2-1.0) mg/dL Ur Leukocyte Esterase Negative (NEGATIVE) Urine RBC 0-5 /HPF Urine WBC 0-5 (0-5/HPF) /HPF Ur Epithelial Cells Rare /HPF Urine Bacteria Rare (0-FEW/HPF) /HPF Urine Mucus Rare /LPF Urine Opiates Screen (NEGATIVE) Ur Oxycodone Screen (NEGATIVE) Urine Methadone Screen (NEGATIVE) Ur Barbiturates Screen (NEGATIVE) U Tricyclic Antidepress (NEGATIVE) Ur Phencyclidine Scrn (NEGATIVE) Ur Amphetamine Screen (NEGATIVE) U Methamphetamines Scrn (NEGATIVE) Urine MDMA Screen (NEGATIVE) U Benzodiazepines Scrn (NEGATIVE) Urine Cocaine Screen (NEGATIVE) U Marijuana (THC) Screen (NEGATIVE) Ethyl Alcohol < 5 mg/dL 11/16/17 11/16/17 Range/Units 07:35 11:07 WBC (5.0-10.0) 10^3/uL RBC (4.6-6.2) 10^6/uL Hgb (14.0-18.0) g/dL Hct (40.0-54.0) % MCV (80-100) fL MCH (27.0-34.0) pg MCHC (33.0-35.0) g/dL Plt Count (150-450) 10^3/uL Neut % (Auto) (42.2-75.2) % Lymph % (Auto) (20.5-50.1) % [place] % (Auto) (2-8) % Eos % (Auto) (1.0-3.0) % Baso % (Auto) (0.0-1.0) % Sodium (135-145) mmol/L Potassium (3.6-5.0) mmol/L Chloride (101-111) mmol/L Carbon Dioxide (21.0-31.0) mmol/L Anion Gap BUN (7-18) mg/dL Creatinine (0.6-1.3) mg/dL Est Cr Clr Drug Dosing mL/min Estimated GFR (MDRD) BUN/Creatinine Ratio Glucose (74-105) mg/dL POC Glucose 146 H (70-105) mg/dl Calcium (8.4-10.2) mg/dl Total Bilirubin (0.2-1.0) mg/dL AST (10-42) IU/L ALT (10-60) IU/L Alkaline Phosphatase (42-121) IU/L Total Protein (6.7-8.2) g/dl Albumin (3.2-5.5) g/dl Globulin Albumin/Globulin Ratio Urine Color (YELLOW) Urine Appearance (CLEAR) Urine pH (5.0-9.0) Ur Specific [place] (1.005-1.030) Urine Protein (NEGATIVE) Urine Glucose (UA) (NEGATIVE) Urine Ketones (NEGATIVE) Urine Occult Blood (NEGATIVE) Urine Nitrite (NEGATIVE) Urine Bilirubin (NEGATIVE) Urine Urobilinogen (0.2-1.0) mg/dL Ur Leukocyte Esterase (NEGATIVE) Urine RBC /HPF Urine WBC (0-5/HPF) /HPF Ur Epithelial Cells /HPF Urine Bacteria (0-FEW/HPF) /HPF Urine Mucus /LPF Urine Opiates Screen Negative (NEGATIVE) Ur Oxycodone Screen Negative (NEGATIVE) Urine Methadone Screen Negative (NEGATIVE) Ur Barbiturates Screen Negative (NEGATIVE) U Tricyclic Antidepress Negative (NEGATIVE) Ur Phencyclidine Scrn Negative (NEGATIVE) Ur Amphetamine Screen Negative (NEGATIVE) U Methamphetamines Scrn Negative (NEGATIVE) Urine MDMA Screen Negative (NEGATIVE) U Benzodiazepines Scrn Positive H (NEGATIVE) Urine Cocaine Screen Negative (NEGATIVE) U Marijuana (THC) Screen Positive H (NEGATIVE) Ethyl Alcohol mg/dL Result Diagrams: 11/16/17 07:11 11/16/17 07:11 Problem List Initiated/Reviewed/Updated: Yes Orders Last 24hrs: Active Orders 24 hr Category Date Time Status Patient Status [ADT] Routine ADT 11/16/17 11:31 Ordered Blood Glucose Check, Bedside [RC] TIDMEALS Care 11/16/17 11:31 Ordered Oxygen Therapy [RC] PRN Care 11/16/17 11:31 Ordered Peripheral IV Care [RC] . DIRECTED Care 11/16/17 07:10 Active Up ad [place] [RC] ASDIRECTED Care 11/16/17 11:31 Ordered VTE/DVT Education [RC] PER UNIT ROUTINE Care 11/16/17 11:31 Ordered Vital Signs [RC] Q4H Care 11/16/17 11:31 Ordered Consistent Carbohydrate Diet [DIET] Diet 11/16/17 Lunch Ordered COMPREHENSIVE METABOLIC PN,CMP [CHEM] AM Lab 11/17/17 05:11 Ordered DRUG SCREEN URINE BIORAD [URCHEM] Stat Lab 11/16/17 07:35 Ordered MAGNESIUM [CHEM] AM Lab 11/17/17 05:11 Ordered PHOSPHORUS [CHEM] AM Lab 11/17/17 05:11 Ordered UA W/MICROSCOPIC [URIN] Stat Lab 11/16/17 07:35 Ordered Acetaminophen [Tylenol] Med 11/16/17 11:31 Ordered 650 mg PO Q4H PRN Atenolol [Tenormin] Med 11/16/17 11:45 Ordered 50 mg PO DAILY Heparin Sodium Med 11/16/17 14:00 Ordered 5,000 units SUBCUT Q8HR LORazepam [Ativan] Med 11/16/17 11:37 Ordered 1 mg PO Q4H PRN Losartan Potassium [Losartan Potassium] Med 11/17/17 09:00 Ordered 100 mg PO DAILY Ondansetron [Zofran] Med 11/16/17 11:31 Ordered 4 mg IVPUSH Q4H PRN Pantoprazole [ProTONIX IV] Med 11/16/17 11:45 Ordered 40 mg IVPUSH DAILY Sodium Chloride 0.9% @ 125 MLS/HR (1000ml) Med 11/16/17 11:45 Ordered Sodium Chloride 0.9% [Normal Saline] 1,000 ml IV ASDIRECTED Sodium Chloride 0.9% [Saline Flush] Med 11/16/17 07:09 Active 10 ml FLUSH ASDIRECTED PRN atorvaSTATin [Lipitor] Med 11/16/17 11:45 Ordered 10 mg PO DAILY hydrALAZINE [Apresoline] Med 11/16/17 11:38 Ordered 10 mg IVPUSH Q4H PRN metFORMIN [Glucophage] Med 11/16/17 11:45 Ordered 1,000 mg PO BID Peripheral IV Insertion Adult [OM.PC] Stat Oth 11/16/17 07:10 Ordered Resuscitation Status Routine Resus Stat 11/16/17 11:31 Ordered Medication Orders Acetaminophen (Tylenol) 650 mg PO Q4H PRN PRN Reason: Pain (Mild 1-3)/fever Atenolol (Tenormin) 50 mg PO DAILY JAIME Atorvastatin Calcium (Lipitor) 10 mg PO DAILY [facility] Heparin Sodium (Porcine) (Heparin Sodium) 5,000 units SUBCUT Q8HR JAIME Hydralazine HCl (Apresoline) 10 mg IVPUSH Q4H PRN PRN Reason: For SBP> 180 Sodium Chloride (Normal Saline) 1,000 mls @ 125 mls/hr IV ASDIRECTED JAIME Lorazepam (Ativan) 1 mg PO Q4H PRN; Protocol PRN Reason: Anxiety,tremors Metformin HCl (Glucophage) 1,000 mg PO BID [facility] Non-Formulary Medication (Losartan Potassium [Losartan Potassium]) 100 mg PO DAILY [facility] Ondansetron HCl (Zofran) 4 mg IVPUSH Q4H PRN PRN Reason: Nausea/Vomiting Pantoprazole Sodium (Protonix Iv) 40 mg IVPUSH DAILY [facility] Sodium Chloride (Saline Flush) 10 ml FLUSH ASDIRECTED PRN PRN Reason: Keep Vein Open Last Admin: 11/16/17 07:12 Dose: 10 ml Assessment/Plan Comment:: Assessment/plan: #. Alcohol abuse/withdrawal while The patient has been on an alcohol binge for the past 5 days. Started having recurrent nausea and vomiting. He feels anxious at this point and his blood pressure is markedly elevated #. Poorly controlled hypertension This may be because of alcohol withdrawal while. Patient is feeling anxious and that may be a contributing factor. #. Diabetes mellitus type 2 Patient is on oral hypoglycemic agent Blood sugars have been well controlled #. Tobacco use disorder Patient smokes about half a pack of cigarettes a day. Expresses intention to quit #. Marijuana abuse Patient indicates that he smokes marijuana on a regular basis. Last use was yesterday. #. Dyslipidemia Patient has been on Lipitor #. Anxiety/depression Patient is feeling anxious at this point. Feels like if he sleeps, would not wake up Plan: Admit patient to medical floor Comments alcohol withdrawal protocol We'll use lorazepam alcohol withdrawal and Monitor blood sugar before meals Start patient back on metformin Start patient on atenolol Start patient on losartan Start intravenous hydralazine for severe hypertension Counseling provided will get alcohol and tobacco use disorder Patient's medical chart reviewed. Discussed with the emergency room physician assistant principal
[2017-11-16] MEDS: atorvaSTATin 10 MG Tab PO SCH (12:15)
[2017-11-16] MEDS: metFORMIN 500 MG Tab PO SCH ×2 (12:29→17:03)
[2017-11-16] MEDS: Sodium Chloride 0.9% 1,000 ML IV SCH ×2 (12:30→21:28)
[2017-11-16] MEDS: Atenolol 50 MG Tab PO SCH (12:30)
[2017-11-16] MEDS: Pantoprazole 40 MG Vial IVPUSH SCH (13:31)
[2017-11-16] MEDS: Heparin Sodium 5,000 Units/ML Vial SUBCUT SCH ×2 (13:34→21:25)
[2017-11-17] MEDS: Heparin Sodium 5,000 Units/ML Vial SUBCUT SCH (05:38)
[2017-11-17] MEDS: Sodium Chloride 0.9% 1,000 ML IV SCH (05:41)
[2017-11-17 06:41] LABS: CHLORIDE,CL 101 mmol/L (101-111); SODIUM,NA 137 mmol/L (135-145)
[2017-11-17] MEDS: atorvaSTATin 10 MG Tab PO SCH (08:23)
[2017-11-17] MEDS: metFORMIN 500 MG Tab PO SCH (08:23)
[2017-11-17] MEDS: Atenolol 50 MG Tab PO SCH (08:23)
[2017-11-17] MEDS: Pantoprazole 40 MG Vial IVPUSH SCH (08:25)
[2017-11-17] MEDS ORDERED: Losartan 50 MG Tab PO SCH (09:00)
--- NOTE | 2017-11-17 11:27 | PCM.DCSUM1 ---
Discharge Summary - Hospital Course Free Text/Narrative:: The patient presented to the emergency room with complaint of nausea and vomiting. He indicated that for the past 5 days [employer] he was on an alcohol binge. Patient is a binge drinker. He would go for several months without alcohol and then go on a binge for about a week. Presented with feeling anxious and markedly elevated blood pressure. Patient was in alcohol withdrawal and got admitted to the hospital. We started him on oral antihypertensives and alcohol withdrawal protocol. He has done well and will be discharged home. Counseling was provided Assessment/plan: #. Alcohol abuse/withdrawal while The patient has been on an alcohol binge for the past 5 days. Patient was having nausea vomiting anxiety and elevated blood pressure #. Poorly controlled hypertension This may be because of alcohol withdrawal #. Diabetes mellitus type 2 Patient is on oral hypoglycemic agent Blood sugars have been well controlled #. Tobacco use disorder Patient smokes about half a pack of cigarettes a day. Expresses intention to quit #. Marijuana abuse Patient indicates that he smokes marijuana on a regular basis. #. Dyslipidemia Patient has been on Lipitor #. Anxiety/depression Diagnosis: Stroke: No - Discharge Data Discharge Date: 11/17/17 Discharge Disposition: Home, Self-Care 01 Condition: Good - Discharge Plan Prescriptions/Med Rec: Atenolol [Tenormin] 50 mg PO DAILY #90 tablet Home Medications: Home Meds atorvaSTATin [Lipitor] 10 mg PO DAILY 10/02/13 [History] metFORMIN [Glucophage] 1,000 mg PO BID 10/02/13 [History] Omeprazole 20 mg PO BID 04/01/14 [History] Jennings Flavor [Jennings Concentrate] 1 cap PO DAILY 05/31/16 [History] Atenolol [Tenormin] 50 mg PO DAILY #90 tablet 11/17/17 [Rx] Losartan Potassium 100 mg PO DAILY #90 11/17/17 [Rx] Referrals: PCP,Unobtain [Primary Care Provider] - - General Info Date of Service: 11/17/17 - Review of Systems General: Reports: Malaise HEENT: Reports: No Symptoms Pulmonary: Reports: No Symptoms Cardiovascular: Reports: No Symptoms, Palpitations Gastrointestinal: Reports: No Symptoms Genitourinary: Reports: No Symptoms Musculoskeletal: Reports: No Symptoms Neurological: Reports: No Symptoms - Patient Data Vitals - Most Recent: Last Vital Signs Temp 36.9 C 11/17/17 08:00 Pulse 76 11/17/17 08:23 Resp 20 11/17/17 08:00 BP 155/96 H 11/17/17 08:24 Pulse Ox 100 11/17/17 08:00 Weight - Most Recent: 96.116 kg I&O - Last 24 hours: Intake & Output 11/16/17 11/17/17 11/17/17 22:59 06:59 14:59 Intake Total 1467 1898 130 Balance 1467 1898 130 Lab Results - Last 24 hrs: Laboratory Results - last 24 hr 11/16/17 11/17/17 11/17/17 Range/Units 16:46 06:00 08:03 Sodium 137 (135-145) mmol/L Potassium 3.1 L (3.6-5.0) mmol/L Chloride 101 (101-111) mmol/L Carbon Dioxide 26.0 (21.0-31.0) mmol/L Anion Gap 13.1 BUN 7 (7-18) mg/dL Creatinine 0.7 (0.6-1.3) mg/dL Est Cr Clr Drug Dosing 122.04 mL/min Estimated GFR (MDRD) > 60 BUN/Creatinine Ratio 10.00 Glucose 121 H (74-105) mg/dL POC Glucose 108 H 121 H (70-105) mg/dl Calcium 8.5 (8.4-10.2) mg/dl Phosphorus 3.8 (2.5-4.6) mg/dL Magnesium 0.9 L (1.8-2.5) mg/dL Total Bilirubin 1.5 H (0.2-1.0) mg/dL AST 35 (10-42) IU/L ALT 25 (10-60) IU/L Alkaline Phosphatase 57 (42-121) IU/L Total Protein 6.3 L (6.7-8.2) g/dl Albumin 3.7 (3.2-5.5) g/dl Globulin 2.6 Albumin/Globulin Ratio 1.42 11/17/17 Range/Units 11:05 Sodium (135-145) mmol/L Potassium (3.6-5.0) mmol/L Chloride (101-111) mmol/L Carbon Dioxide (21.0-31.0) mmol/L Anion Gap BUN (7-18) mg/dL Creatinine (0.6-1.3) mg/dL Est Cr Clr Drug Dosing mL/min Estimated GFR (MDRD) BUN/Creatinine Ratio Glucose (74-105) mg/dL POC Glucose 116 H (70-105) mg/dl Calcium (8.4-10.2) mg/dl Phosphorus (2.5-4.6) mg/dL Magnesium (1.8-2.5) mg/dL Total Bilirubin (0.2-1.0) mg/dL AST (10-42) IU/L ALT (10-60) IU/L Alkaline Phosphatase (42-121) IU/L Total Protein (6.7-8.2) g/dl Albumin (3.2-5.5) g/dl Globulin Albumin/Globulin Ratio Med Orders - Current: Current Medications Acetaminophen (Tylenol) 650 mg PO Q4H PRN PRN Reason: Pain (Mild 1-3)/fever Atenolol (Tenormin) 50 mg PO DAILY [facility] Last Admin: 11/17/17 08:23 Dose: 50 mg Atorvastatin Calcium (Lipitor) 10 mg PO DAILY [facility] Last Admin: 11/17/17 08:23 Dose: 10 mg Heparin Sodium (Porcine) (Heparin Sodium) 5,000 units SUBCUT Q8HR [facility] Last Admin: 11/17/17 05:38 Dose: 5,000 units Hydralazine HCl (Apresoline) 10 mg IVPUSH Q4H PRN PRN Reason: For SBP> 180 Last Admin: 11/16/17 17:10 Dose: 10 mg Sodium Chloride (Normal Saline) 1,000 mls @ 125 mls/hr IV ASDIRECTED [facility] Last Admin: 11/17/17 05:41 Dose: 125 mls/hr Lorazepam (Ativan) 1 mg PO Q4H PRN; Protocol PRN Reason: Anxiety,tremors Last Admin: 11/16/17 17:05 Dose: 1 mg Losartan Potassium (Cozaar) 100 mg PO DAILY [facility] Last Admin: 11/17/17 08:24 Dose: 100 mg Metformin HCl (Glucophage) 1,000 mg PO BIDMEALS [facility] Last Admin: 11/17/17 08:23 Dose: 1,000 mg Ondansetron HCl (Zofran) 4 mg IVPUSH Q4H PRN PRN Reason: Nausea/Vomiting Pantoprazole Sodium (Protonix Iv) 40 mg IVPUSH DAILY [facility] Last Admin: 11/17/17 08:25 Dose: 40 mg Sodium Chloride (Saline Flush) 10 ml FLUSH ASDIRECTED PRN PRN Reason: Keep Vein Open Last Admin: 11/16/17 07:12 Dose: 10 ml Discontinued Medications Sodium Chloride (Normal Saline) 1,000 mls @ 999 mls/hr IV .BOLUS ONE Stop: 11/16/17 08:10 Last Admin: 11/16/17 07:12 Dose: 999 mls/hr Labetalol HCl (Normodyne) 20 mg IVPUSH NOW ONE; Protocol Stop: 11/16/17 08:52 Last Admin: 11/16/17 09:14 Dose: 20 mg Lorazepam (Ativan) 1 mg PO ONETIME ONE Stop: 11/16/17 07:26 Last Admin: 11/16/17 07:30 Dose: 1 mg Lorazepam (Ativan) 0.5 mg IVPUSH ONETIME ONE Stop: 11/16/17 07:42 Last Admin: 11/16/17 07:50 Dose: 0.5 mg Ondansetron HCl (Zofran) 4 mg IV ONETIME ONE Stop: 11/16/17 07:42 Last Admin: 11/16/17 07:48 Dose: 4 mg Pantoprazole Sodium (Protonix Iv) 40 mg IVPUSH DAILY JAIME - Exam General: Reports: Alert, Oriented HEENT: Reports: Pupils Equal, Pupils Reactive, EOMI, Mucous Membr. Moist/Dorothy Neck: Reports: Supple Lungs: Reports: Clear to Auscultation GI/Abdominal Exam: Normal Bowel Sounds, Soft, Non-Tender, No Organomegaly, No Distention, No Abnormal Bruit, No Mass, Pelvis Stable Extremities: Normal Inspection, Normal Range of Motion, Non-Tender, No Pedal Edema, Normal Capillary Refill
[2017-11-17 11:46] VITALS: BP 152/92
== END 2017-11-17 12:05 | disposition home or self-care (01) ==
LOC: DL.ED 06:50 → DL.MS 10:57 → UNDOADMOB 10:57 → DL.MS 11:31
PROVIDERS: ADMIT Hospitalist; ATTEND Hospitalist
DX: F10.239 Alcohol dependence with withdrawal, unspecified (principal); F12.10 Cannabis abuse, uncomplicated; K70.10 Alcoholic hepatitis without ascites; K22.70 Barrett's esophagus without dysplasia; K44.9 Diaphragmatic hernia without obstruction or gangrene; I10 Essential (primary) hypertension; D69.6 Thrombocytopenia, unspecified; E11.9 Type 2 diabetes mellitus without complications; E78.5 Hyperlipidemia, unspecified; M51.36 Other intervertebral disc degeneration, lumbar region; M19.90 Unspecified osteoarthritis, unspecified site; F17.210 Nicotine dependence, cigarettes, uncomplicated; F41.8 Other specified anxiety disorders; Z79.84 Long term (current) use of oral hypoglycemic drugs; Z79.899 Other long term (current) drug therapy
CPT/HCPCS: 36415; 80053; 80305; 81001; 82962; 83735; 84100; 85025; 96361; 96374; 96375; 99285; A9270; C9113; G0480; J0360; J1644; J2060; J2405; J3490; J7030; J7050

== ENCOUNTER 2018-02-16 11:21 | Emergency (ER) | payer MEDICAID ==
[2018-02-16 11:49] VITALS: BP 192/116
[2018-02-16] MEDS ORDERED: LORazepam 2 MG/ML Syringe IVPUSH ONE (11:49)
[2018-02-16] MEDS ORDERED: MVI, Adult with Vitamin K 10 ML, Folic Acid 1 MG, Thiamine 100 MG in Lactated Ringers 1... IV ONE ×4 (11:49)
[2018-02-16] MEDS ORDERED: Ondansetron 4 MG/2 ML SDV IV ONE (11:49)
--- NOTE | 2018-02-16 11:56 | EDM.PDOC ---
ED HPI GENERAL MEDICAL PROBLEM - General Chief Complaint: Gastrointestinal Problem Stated Complaint: [id number] DRINKING X4 DAYS THROWING UP Time Seen by Provider: 02/16/18 11:45 Source of Information: Reports: Patient History Limitations: Reports: No Limitations - History of Present Illness INITIAL COMMENTS - FREE TEXT/NARRATIVE: This 52 yo male patient reports to the ED due to having the shakes and being extremely nauseated. The patient reports that he has been drinking "pretty heavily" for the past 4 days, but stopped drinking last night. The patient has been throwing up since last night and has not been able to keep anything down. The patient reports that he had similar symptoms about 1 year ago and his symptoms improved after being seen in the ED. The patient denied any ETOH treatment. Onset Date: 02/15/18 Duration: Constant Location: Reports: Generalized Quality: Reports: Other Severity: Moderate Improves with: Reports: None Worsens with: Reports: None Associated Symptoms: Reports: No Other Symptoms - Related Data Allergies Allergy/AdvReac Type Severity Reaction Status Date / Time No Known Allergies Allergy Verified 02/16/18 11:37 Home Meds: Home Meds atorvaSTATin [Lipitor] 10 mg PO DAILY 10/02/13 [History] metFORMIN [Glucophage] 1,000 mg PO BID 10/02/13 [History] Omeprazole 20 mg PO BID 04/01/14 [History] Jennings Flavor [Jennings Concentrate] 1 cap PO DAILY 05/31/16 [History] Atenolol [Tenormin] 50 mg PO DAILY #90 tablet 11/17/17 [Rx] Losartan Potassium 100 mg PO DAILY #90 11/17/17 [Rx] Past Medical History Other HEENT History: reading glasses Cardiovascular History: Reports: High Cholesterol, Hypertension Respiratory History: Reports: None Gastrointestinal History: Reports: Hiatal Hernia, Other (See Below) Other Gastrointestinal History: DUNN ESOPHAGUS, alcoholic hepatitis Genitourinary History: Reports: None Musculoskeletal History: Reports: Arthritis, Other (See Below) Other Musculoskeletal History: HX OF ACROMIOCLAVICULAR JOINT SEPERATION; DEGENERATIVE DISC DISEASE, LUMBAR Neurological History: Reports: None Psychiatric History: Reports: Addiction, Depression, Panic Attack, Other (See Below) Other Psychiatric History: HX OF ALCOHOL AND TOBACCO HABITUATION Endocrine/Metabolic History: Reports: Diabetes, Type II Hematologic History: Reports: Other (See Below) Other Hematologic History: THROMBOCYTOPENIA Immunologic History: Reports: None Oncologic (Cancer) History: Reports: None Dermatologic History: Reports: None - Infectious Disease History Infectious Disease History: Reports: Chicken Pox - Past Surgical History HEENT Surgical History: Reports: None Cardiovascular Surgical History: Reports: None Respiratory Surgical History: Reports: None GI Surgical History: Reports: None, EGD Male Surgical History: Reports: None Musculoskeletal Surgical History: Reports: Shoulder Replacement Social & Family History - Family History Family Medical History: Noncontributory - Tobacco Use Smoking Status *Q: Current Every Day Smoker Years of Tobacco use: 40 Packs/Tins Daily: 1 Second Hand Smoke Exposure: Yes - Caffeine Use Caffeine Use: Reports: Coffee - Alcohol Use Days Per Week of Alcohol Use: 7 Number of Drinks Per Day: 10 Total Drinks Per Week: 70 Date of Last Drink: 02/14/18 Time of Last Drink: 09:00 - Recreational Drug Use Recreational Drug Use: No - Living Situation & Occupation Living situation: Reports: Occupation: Unemployed ED ROS GENERAL - Review of Systems Review Of Systems: ROS reveals no pertinent complaints other than HPI. ED EXAM, GI/ABD - Physical Exam Exam: See Below Exam Limited By: No Limitations General Appearance: Alert, WD/WN, No Apparent Distress Eyes: Bilateral: Normal Appearance, EOMI Ears: Normal External Exam, Normal Canal, Hearing Grossly Normal, Normal TMs Nose: Normal Inspection, Normal Mucosa, No Blood Throat/Mouth: Normal Inspection, Normal Lips, Normal Teeth, Normal Gums, Normal Oropharynx, Normal Voice, No Airway Compromise Head: Atraumatic, Normocephalic Neck: Normal Inspection, Supple, Non-Tender, Full Range of Motion Respiratory/Chest: No Respiratory Distress, Lungs Clear, Normal Breath Sounds, No Accessory Muscle Use, Chest Non-Tender Cardiovascular: No Edema, No Gallop, No JVD, No Murmur, No Rub, Tachycardia GI/Abdominal Exam: Normal Bowel Sounds, Soft, Non-Tender, No Organomegaly, No Distention, No Abnormal Bruit, No Mass, Pelvis Stable (Male) Exam: Deferred Rectal (Males) Exam: Deferred Back Exam: Normal Inspection, Full Range of Motion, NT Extremities: Normal Inspection, Normal Range of Motion, Non-Tender, Normal Capillary Refill, No Pedal Edema Neurological: Alert, Oriented, CN II-XII Intact, Normal Cognition, Normal Gait, Normal Reflexes, No Motor/Sensory Deficits Psychiatric: Normal Affect, Normal Mood Skin Exam: Warm, Dry, Intact, Normal Color, No Rash Lymphatic: No Adenopathy Course - Vital Signs Last Recorded V/S: Last Vital Signs Temp 35.7 C 02/16/18 11:47 Pulse 71 02/16/18 11:47 Resp 16 02/16/18 11:47 BP 192/116 H 02/16/18 11:47 Pulse Ox 99 02/16/18 11:47 - Orders/Labs/Meds Orders: Active Orders 24 hr Category Date Time Status UA W/MICROSCOPIC [URIN] Stat Lab 02/16/18 12:21 Results Labs: Laboratory Tests 02/16/18 02/16/18 02/16/18 Range/Units 11:59 11:59 11:59 WBC 12.4 H (5.0-10.0) 10^3/uL RBC 4.91 (4.6-6.2) 10^6/uL Hgb 15.7 D (14.0-18.0) g/dL Hct 43.9 (40.0-54.0) % MCV 89.4 (80-100) fL MCH 32.0 (27.0-34.0) pg MCHC 35.8 H (33.0-35.0) g/dL Plt Count 202 (150-450) 10^3/uL Neut % (Auto) 81.3 H (42.2-75.2) % Lymph % (Auto) 10.1 L (20.5-50.1) % Snyder % (Auto) 7.9 (2-8) % Eos % (Auto) 0.2 L (1.0-3.0) % Baso % (Auto) 0.5 (0.0-1.0) % Sodium 138 (135-145) mmol/L Potassium 3.2 L (3.6-5.0) mmol/L Chloride 92 L (101-111) mmol/L Carbon Dioxide 25.0 (21.0-31.0) mmol/L Anion Gap 24.2 BUN 16 (7-18) mg/dL Creatinine 0.9 (0.6-1.3) mg/dL Est Cr Clr Drug Dosing 94.92 mL/min Estimated GFR (MDRD) > 60 BUN/Creatinine Ratio 17.77 Glucose 179 H (74-105) mg/dL Calcium 10.4 H D (8.4-10.2) mg/dl Total Bilirubin 1.5 H (0.2-1.0) mg/dL AST 66 H (10-42) IU/L ALT 50 (10-60) IU/L Alkaline Phosphatase 70 (42-121) IU/L Total Protein 7.7 (6.7-8.2) g/dl Albumin 4.4 (3.2-5.5) g/dl Globulin 3.3 Albumin/Globulin Ratio 1.33 Urine Color (YELLOW) Urine Appearance (CLEAR) Urine pH (5.0-9.0) Ur Specific Chester (1.005-1.030) Urine Protein (NEGATIVE) Urine Glucose (UA) (NEGATIVE) Urine Ketones (NEGATIVE) Urine Occult Blood (NEGATIVE) Urine Nitrite (NEGATIVE) Urine Bilirubin (NEGATIVE) Urine Urobilinogen (0.2-1.0) mg/dL Ur Leukocyte Esterase (NEGATIVE) Urine Opiates Screen (NEGATIVE) Ur Oxycodone Screen (NEGATIVE) Urine Methadone Screen (NEGATIVE) Ur Barbiturates Screen (NEGATIVE) U Tricyclic Antidepress (NEGATIVE) Ur Phencyclidine Scrn (NEGATIVE) Ur Amphetamine Screen (NEGATIVE) U Methamphetamines Scrn (NEGATIVE) Urine MDMA Screen (NEGATIVE) U Benzodiazepines Scrn (NEGATIVE) Urine Cocaine Screen (NEGATIVE) U Marijuana (THC) Screen (NEGATIVE) Ethyl Alcohol < 5 mg/dL 02/16/18 02/16/18 Range/Units 12:21 12:21 WBC (5.0-10.0) 10^3/uL RBC (4.6-6.2) 10^6/uL Hgb (14.0-18.0) g/dL Hct (40.0-54.0) % MCV (80-100) fL MCH (27.0-34.0) pg MCHC (33.0-35.0) g/dL Plt Count (150-450) 10^3/uL Neut % (Auto) (42.2-75.2) % Lymph % (Auto) (20.5-50.1) % Snyder % (Auto) (2-8) % Eos % (Auto) (1.0-3.0) % Baso % (Auto) (0.0-1.0) % Sodium (135-145) mmol/L Potassium (3.6-5.0) mmol/L Chloride (101-111) mmol/L Carbon Dioxide (21.0-31.0) mmol/L Anion Gap BUN (7-18) mg/dL Creatinine (0.6-1.3) mg/dL Est Cr Clr Drug Dosing mL/min Estimated GFR (MDRD) BUN/Creatinine Ratio Glucose (74-105) mg/dL Calcium (8.4-10.2) mg/dl Total Bilirubin (0.2-1.0) mg/dL AST (10-42) IU/L ALT (10-60) IU/L Alkaline Phosphatase (42-121) IU/L Total Protein (6.7-8.2) g/dl Albumin (3.2-5.5) g/dl Globulin Albumin/Globulin Ratio Urine Color Yellow (YELLOW) Urine Appearance Clear (CLEAR) Urine pH 8.0 (5.0-9.0) Ur Specific Chester 1.015 (1.005-1.030) Urine Protein 30 H (NEGATIVE) Urine Glucose (UA) Negative (NEGATIVE) Urine Ketones Negative (NEGATIVE) Urine Occult Blood Trace-intact H (NEGATIVE) Urine Nitrite Negative (NEGATIVE) Urine Bilirubin Negative (NEGATIVE) Urine Urobilinogen 0.2 (0.2-1.0) mg/dL Ur Leukocyte Esterase Negative (NEGATIVE) Urine Opiates Screen Negative (NEGATIVE) Ur Oxycodone Screen Negative (NEGATIVE) Urine Methadone Screen Negative (NEGATIVE) Ur Barbiturates Screen Negative (NEGATIVE) U Tricyclic Antidepress Negative (NEGATIVE) Ur Phencyclidine Scrn Negative (NEGATIVE) Ur Amphetamine Screen Negative (NEGATIVE) U Methamphetamines Scrn Negative (NEGATIVE) Urine MDMA Screen Negative (NEGATIVE) U Benzodiazepines Scrn Positive H (NEGATIVE) Urine Cocaine Screen Negative (NEGATIVE) U Marijuana (THC) Screen Positive H (NEGATIVE) Ethyl Alcohol mg/dL Meds: Medications Discontinued Medications Generic Name Dose Route Start Last Admin Trade Name Freq PRN Reason Stop Dose Admin Multivitamins/Minerals 10 ml/ 1,011.2 mls @ 999 mls/hr 02/16/18 11:49 12:13 Folic Acid 1 mg/ Thiamine HCl IV 02/16/18 12:49 999 mls/hr 100 mg/ Lactated Ringer's ONETIME ONE Administration Lorazepam 1 mg 02/16/18 11:49 02/16/18 12:14 Ativan IVPUSH 02/16/18 11:50 1 mg ONETIME ONE Administration Ondansetron HCl 4 mg 02/16/18 11:49 02/16/18 12:14 Zofran IV 02/16/18 11:50 4 mg ONETIME ONE Administration Departure - Departure Time of Disposition: 14:25 Disposition: Home, Self-Care 01 Condition: Fair Clinical Impression: Alcohol abuse, Vomiting Alcohol withdrawal syndrome Qualifiers: Complication of substance-induced condition: uncomplicated Qualified Code(s): F10.230 - Alcohol dependence with withdrawal, uncomplicated - Discharge Information *PRESCRIPTION DRUG MONITORING PROGRAM REVIEWED*: Not Applicable *COPY OF PRESCRIPTION DRUG MONITORING REPORT IN PATIENT LUIS: Not Applicable Instructions: Alcohol Use Disorder, Nausea and Vomiting, Adult Forms: ED Department Discharge Care Plan Goals: The patient was advised of the examination and lab results during the visit. The patient was given a liter of IV fluids (multivitamin), IV Ativan and IV Zofran while in the ED. The patient was discharged with a script for Librium # 12 to take 1 by mouth every 6-8 hours (do not drive with this medication) and Zofran ODT (4 mg) #12 to take 1 by mouth every 6 hours as needed for nausea. If the patient has any additional symptoms or concerns, the patient should follow- up with his primary care facility or return to the emergency department. - My Orders Last 24 Hours: My Active Orders 02/16/18 12:21 UA W/MICROSCOPIC [URIN] Stat - Assessment/Plan Last 24 Hours: My Active Orders 02/16/18 12:21 UA W/MICROSCOPIC [URIN] Stat
[2018-02-16 12:25] LABS: ANION GAP 24.2; CHLORIDE,CL 92 mmol/L (101-111); SODIUM,NA 138 mmol/L (135-145)
== END 2018-02-16 14:29 | disposition home or self-care (01) ==
LOC: DL.ED 11:21
DX: F10.230 Alcohol dependence with withdrawal, uncomplicated (principal); I10 Essential (primary) hypertension; E11.9 Type 2 diabetes mellitus without complications; F17.210 Nicotine dependence, cigarettes, uncomplicated; Z79.84 Long term (current) use of oral hypoglycemic drugs
CPT/HCPCS: 36415; 80053; 80305; 81001; 85025; 96374; 96375; 99284; G0480; J2060; J2405; J3411; J7120; J3490

== ENCOUNTER 2018-08-08 23:29 | Emergency (ER) | payer MEDICAID ==
[2018-08-08] MEDS ORDERED: LORazepam 0.5 MG Tab PO ONE (23:30)
[2018-08-08 23:39] VITALS: BP 146/83
[2018-08-08] MEDS: Sodium Chloride 0.9% 10 ML Syringe FLUSH PRN (23:49)
[2018-08-09 00:37] LABS: ANION GAP 24.1; CHLORIDE,CL 101 mmol/L (101-111); SODIUM,NA 140 mmol/L (135-145)
[2018-08-09] MEDS: Potassium Chloride 10 MEQ Tab.ER PO ONE (01:06)
--- NOTE | 2018-08-09 01:16 | EDM.PDOC ---
ED HPI GENERAL MEDICAL PROBLEM - General Chief Complaint: Cardiovascular Problem Stated Complaint: BP ISSUES [id number] Time Seen by Provider: 08/08/18 23:45 Source of Information: Reports: Patient, Family, RN, RN Notes Reviewed History Limitations: Reports: No Limitations - History of Present Illness INITIAL COMMENTS - FREE TEXT/NARRATIVE: Pt to ER with c/o chest pains that lasted a couple of minutes. He states he has been feeling anxious lately and "not feeling right". He states he drinks about 1L of hard alcohol per day, and today drank 1/2L. He states they were on their way to [facility] when he had a sharp mid sternal chest pain that lasted a "few minutes". Pain has since resolved. Patient states he felt as if he was going to collapse. Patient admits to SOB at times, and the chest pain previously described. Denies recent illness, cough, sore throat, N/V/D. He denies any cardiac history. Admits to DMII. Also admits to Onset: Today, Sudden Duration: Intermittent Location: Reports: Chest Quality: Reports: Stabbing Severity: Moderate Improves with: Reports: None Worsens with: Reports: None Associated Symptoms: Reports: No Other Symptoms - Related Data Allergies Allergy/AdvReac Type Severity Reaction Status Date / Time No Known Allergies Allergy Verified 08/08/18 23:39 Home Meds: Home Meds atorvaSTATin [Lipitor] 10 mg PO DAILY 10/02/13 [History] metFORMIN [Glucophage] 1,000 mg PO BID 10/02/13 [History] Omeprazole 20 mg PO BID 04/01/14 [History] Jennings Flavor [Jennings Concentrate] 1 cap PO DAILY 05/31/16 [History] Atenolol [Tenormin] 50 mg PO DAILY #90 tablet 11/17/17 [Rx] Losartan Potassium 100 mg PO DAILY #90 11/17/17 [Rx] Gluc 2KCl/Chondr/Reta Hy/Hy Ac [Glucosamine & Chondroitin Cap] 1 each PO DAILY 04/17/18 [History] Multivitamin [Multivitamins] 1 each PO DAILY 04/17/18 [History] QUEtiapine [SEROquel] 150 mg PO BEDTIME 04/17/18 [History] chlordiazePOXIDE [Librium] 25 mg PO Q6H 04/18/18 [History] Past Medical History Other HEENT History: reading glasses Cardiovascular History: Reports: High Cholesterol, Hypertension Respiratory History: Reports: None Gastrointestinal History: Reports: GERD, Hiatal Hernia, Other (See Below) Other Gastrointestinal History: DUNN ESOPHAGUS, alcoholic hepatitis Genitourinary History: Reports: None Musculoskeletal History: Reports: Arthritis, Other (See Below) Other Musculoskeletal History: HX OF ACROMIOCLAVICULAR JOINT SEPERATION; DEGENERATIVE DISC DISEASE, LUMBAR. Shoulder replacement left in march 2014 has hardware Neurological History: Reports: None Psychiatric History: Reports: Addiction, Anxiety, Depression, Panic Attack, Other (See Below) Other Psychiatric History: HX OF ALCOHOL AND TOBACCO HABITUATION Endocrine/Metabolic History: Reports: Diabetes, Type II Hematologic History: Reports: Other (See Below) Other Hematologic History: THROMBOCYTOPENIA Immunologic History: Reports: None Oncologic (Cancer) History: Reports: None Dermatologic History: Reports: None - Infectious Disease History Infectious Disease History: Reports: Chicken Pox - Past Surgical History HEENT Surgical History: Reports: None Cardiovascular Surgical History: Reports: None Respiratory Surgical History: Reports: None GI Surgical History: Reports: Colonoscopy, EGD Male Surgical History: Reports: None Musculoskeletal Surgical History: Reports: Shoulder Replacement Social & Family History - Family History Family Medical History: Noncontributory - Tobacco Use Smoking Status *Q: Heavy Tobacco Smoker Years of Tobacco use: 30 Packs/Tins Daily: 1 - Caffeine Use Caffeine Use: Reports: Coffee, Energy Drinks Caffeine Use Comment: pot daily - Recreational Drug Use Recreational Drug Use: Yes Recreational Drug Type: Reports: Marijuana/Hashish - Living Situation & Occupation Living situation: Reports: Occupation: Unemployed ED ROS GENERAL - Review of Systems Review Of Systems: ROS reveals no pertinent complaints other than HPI. ED EXAM, GENERAL - Physical Exam Exam: See Below Exam Limited By: No Limitations General Appearance: Alert, WD/WN, Anxious Eye Exam: Bilateral Eye: EOMI, Normal Inspection Ears: Normal External Exam, Hearing Grossly Normal Nose: Normal Inspection Throat/Mouth: Normal Inspection, Normal Voice, No Airway Compromise Head: Atraumatic, Normocephalic Neck: Normal Inspection, Supple, Non-Tender, Full Range of Motion Respiratory/Chest: No Respiratory Distress, Lungs Clear, Normal Breath Sounds, No Accessory Muscle Use, Chest Non-Tender Cardiovascular: Normal Peripheral Pulses, Regular Rate, Rhythm, No Edema, No Gallop, No JVD, No Murmur, No Rub Peripheral Pulses: 2+: Radial (L), Radial (R) GI/Abdominal: Normal Bowel Sounds, Soft, Non-Tender (Male) Exam: Deferred Rectal (Males) Exam: Deferred Back Exam: Normal Inspection, Full Range of Motion, NT Extremities: Normal Inspection, Normal Range of Motion, Non-Tender, Normal Capillary Refill, No Pedal Edema Neurological: Alert, Oriented, No Motor/Sensory Deficits Psychiatric: Anxious Skin Exam: Warm, Dry, Intact, Normal Color, No Rash Lymphatic: No Adenopathy EKG INTERPRETATION EKG Date: 08/08/18 Time: 23:44 Rhythm: NSR Rate (Beats/Min): 93 [place]: Normal P-Wave: Present QRS: Normal ST-T: Normal QT: Normal Comparison: No Change Course - Vital Signs Last Recorded V/S: Last Vital Signs Temp 98.6 F 08/08/18 23:36 Pulse 104 H 08/08/18 23:36 Resp 18 08/08/18 23:36 BP 146/83 H 08/08/18 23:36 Pulse Ox 99 08/08/18 23:36 - Orders/Labs/Meds Orders: Active Orders 24 hr Category Date Time Status EKG Documentation Completion [RC] STAT Care 08/08/18 23:43 Active Peripheral IV Care [RC] . DIRECTED Care 08/08/18 23:44 Active Sodium Chloride 0.9% [Saline Flush] Med 08/08/18 23:43 Active 10 ml FLUSH ASDIRECTED PRN Peripheral IV Insertion Adult [OM.PC] Stat Oth 08/08/18 23:43 Ordered Medication Orders Sodium Chloride (Saline Flush) 10 ml FLUSH ASDIRECTED PRN PRN Reason: Keep Vein Open Last Admin: 08/08/18 23:49 Dose: 10 ml Labs: Laboratory Tests 08/08/18 08/08/18 08/08/18 Range/Units 23:48 23:48 23:54 WBC 13.3 H (5.0-10.0) 10^3/uL RBC 4.61 (4.6-6.2) 10^6/uL Hgb 15.0 D (14.0-18.0) g/dL Hct 42.1 (40.0-54.0) % MCV 91.3 (80-100) fL MCH 32.5 (27.0-34.0) pg MCHC 35.6 H (33.0-35.0) g/dL Plt Count 277 (150-450) 10^3/uL Neut % (Auto) 44.2 (42.2-75.2) % Lymph % (Auto) 45.2 (20.5-50.1) % [place] % (Auto) 8.4 H (2-8) % Eos % (Auto) 1.6 (1.0-3.0) % Baso % (Auto) 0.6 (0.0-1.0) % Sodium 140 (135-145) mmol/L Potassium 3.1 L (3.6-5.0) mmol/L Chloride 101 (101-111) mmol/L Carbon Dioxide 18.0 L (21.0-31.0) mmol/L Anion Gap 24.1 BUN 16 (7-18) mg/dL Creatinine 1.0 (0.6-1.3) mg/dL Est Cr Clr Drug Dosing 84.45 mL/min Estimated GFR (MDRD) > 60 BUN/Creatinine Ratio 16.00 Glucose 145 H (74-105) mg/dL POC Glucose 128 H (70-105) mg/dl Calcium 8.7 D (8.4-10.2) mg/dl Magnesium 1.3 L (1.8-2.5) mg/dL Total Bilirubin 0.8 (0.2-1.0) mg/dL AST 42 (10-42) IU/L ALT 29 (10-60) IU/L Alkaline Phosphatase 48 (42-121) IU/L Troponin I < 0.02 (0.00-0.02) ng/ml Total Protein 6.9 (6.7-8.2) g/dl Albumin 4.1 (3.2-5.5) g/dl Globulin 2.8 Albumin/Globulin Ratio 1.46 Urine Color (YELLOW) Urine Appearance (CLEAR) Urine pH (5.0-9.0) Ur Specific [place] (1.005-1.030) Urine Protein (NEGATIVE) Urine Glucose (UA) (NEGATIVE) Urine Ketones (NEGATIVE) Urine Occult Blood (NEGATIVE) Urine Nitrite (NEGATIVE) Urine Bilirubin (NEGATIVE) Urine Urobilinogen (0.2-1.0) mg/dL Ur Leukocyte Esterase (NEGATIVE) Urine RBC /HPF Urine WBC (0-5/HPF) /HPF Ur Epithelial Cells /HPF Urine Bacteria (0-FEW/HPF) /HPF Urine Opiates Screen (NEGATIVE) Ur Oxycodone Screen (NEGATIVE) Urine Methadone Screen (NEGATIVE) Ur Barbiturates Screen (NEGATIVE) U Tricyclic Antidepress (NEGATIVE) Ur Phencyclidine Scrn (NEGATIVE) Ur Amphetamine Screen (NEGATIVE) U Methamphetamines Scrn (NEGATIVE) Urine MDMA Screen (NEGATIVE) U Benzodiazepines Scrn (NEGATIVE) Urine Cocaine Screen (NEGATIVE) U Marijuana (THC) Screen (NEGATIVE) Ethyl Alcohol 140 mg/dL 08/08/18 08/08/18 Range/Units 23:59 23:59 WBC (5.0-10.0) 10^3/uL RBC (4.6-6.2) 10^6/uL Hgb (14.0-18.0) g/dL Hct (40.0-54.0) % MCV (80-100) fL MCH (27.0-34.0) pg MCHC (33.0-35.0) g/dL Plt Count (150-450) 10^3/uL Neut % (Auto) (42.2-75.2) % Lymph % (Auto) (20.5-50.1) % [place] % (Auto) (2-8) % Eos % (Auto) (1.0-3.0) % Baso % (Auto) (0.0-1.0) % Sodium (135-145) mmol/L Potassium (3.6-5.0) mmol/L Chloride (101-111) mmol/L Carbon Dioxide (21.0-31.0) mmol/L Anion Gap BUN (7-18) mg/dL Creatinine (0.6-1.3) mg/dL Est Cr Clr Drug Dosing mL/min Estimated GFR (MDRD) BUN/Creatinine Ratio Glucose (74-105) mg/dL POC Glucose (70-105) mg/dl Calcium (8.4-10.2) mg/dl Magnesium (1.8-2.5) mg/dL Total Bilirubin (0.2-1.0) mg/dL AST (10-42) IU/L ALT (10-60) IU/L Alkaline Phosphatase (42-121) IU/L Troponin I (0.00-0.02) ng/ml Total Protein (6.7-8.2) g/dl Albumin (3.2-5.5) g/dl Globulin Albumin/Globulin Ratio Urine Color Yellow (YELLOW) Urine Appearance Clear (CLEAR) Urine pH 5.5 (5.0-9.0) Ur Specific [place] 1.020 (1.005-1.030) Urine Protein Trace H (NEGATIVE) Urine Glucose (UA) Negative (NEGATIVE) Urine Ketones 15 H (NEGATIVE) Urine Occult Blood Trace-intact H (NEGATIVE) Urine Nitrite Negative (NEGATIVE) Urine Bilirubin Negative (NEGATIVE) Urine Urobilinogen 0.2 (0.2-1.0) mg/dL Ur Leukocyte Esterase Negative (NEGATIVE) Urine RBC 0-5 /HPF Urine WBC 0-5 (0-5/HPF) /HPF Ur Epithelial Cells Few /HPF Urine Bacteria Few (0-FEW/HPF) /HPF Urine Opiates Screen Negative (NEGATIVE) Ur Oxycodone Screen Negative (NEGATIVE) Urine Methadone Screen Negative (NEGATIVE) Ur Barbiturates Screen Negative (NEGATIVE) U Tricyclic Antidepress Negative (NEGATIVE) Ur Phencyclidine Scrn Negative (NEGATIVE) Ur Amphetamine Screen Negative (NEGATIVE) U Methamphetamines Scrn Positive H (NEGATIVE) Urine MDMA Screen Negative (NEGATIVE) U Benzodiazepines Scrn Positive H (NEGATIVE) Urine Cocaine Screen Negative (NEGATIVE) U Marijuana (THC) Screen Positive H (NEGATIVE) Ethyl Alcohol mg/dL Meds: Medications Generic Name Dose Route Start Last Admin Trade Name Freq PRN Reason Stop Dose Admin Sodium Chloride 10 ml 08/08/18 23:43 08/08/18 23:49 Saline Flush FLUSH 10 ml ASDIRECTED PRN Administration Keep Vein Open Discontinued Medications Generic Name Dose Route Start Last Admin Trade Name Freq PRN Reason Stop Dose Admin Lorazepam 1 mg 08/09/18 01:07 08/09/18 01:17 Ativan IVPUSH 08/09/18 01:08 1 mg ONETIME ONE Administration Magnesium Oxide 500 mg 08/09/18 01:07 08/09/18 01:22 Magnesium Oxide PO 08/09/18 01:08 500 mg NOW ONE Administration Ondansetron HCl 4 mg 08/09/18 01:16 08/09/18 01:20 Zofran IV 08/09/18 01:17 4 mg ONETIME ONE Administration Potassium Chloride 40 meq 08/09/18 00:57 08/09/18 01:06 Klor-Con 10 PO 08/09/18 00:58 40 meq ONETIME ONE Administration - Radiology Interpretation Free Text/Narrative:: Chest xray: FINDINGS: Lungs: Unremarkable. No consolidation. Pleural space: Unremarkable. No pleural effusion. No pneumothorax. Heart/Mediastinum: Unremarkable. No cardiomegaly. Bones/joints: Unremarkable. IMPRESSION: No acute findings. Thank you for allowing us to participate in the care of your patient. Dictated and Authenticated by: Kenney Dawson MD 08/09/2018 1:18 AM Central Time ([place] & [place]) See rad report Departure - Departure Time of Disposition: 02:11 Disposition: Home, Self-Care 01 Condition: Fair Clinical Impression: Alcohol abuse, Panic attack, Anxiety Alcohol withdrawal syndrome Qualifiers: Complication of substance-induced condition: uncomplicated Qualified Code(s): F10.230 - Alcohol dependence with withdrawal, uncomplicated Instructions: Alcohol Withdrawal, [id number], Finding Treatment for Addiction , Recovering From Addiction, Generalized Anxiety Disorder, Adult, What You Need to Know About Alcohol Abuse and Dependence, Adult, Alcohol Abuse and Nutrition, Panic Attack, [id number], Alcohol Use Disorder Forms: ED Department Discharge Additional Instructions: RX: Lorazepam 0.5mg every 4-6 hours as needed for anxiety, Magnesium daily Refrain from drinking alcohol Call friends for help Call the [facility] if you would like to seek treatment Drink plenty of water Follow up with your primary care facility for recheck of labwork - My Orders Last 24 Hours: My Active Orders 08/08/18 23:43 EKG Documentation Completion [RC] STAT Sodium Chloride 0.9% [Saline Flush] 10 ml FLUSH ASDIRECTED PRN Peripheral IV Insertion Adult [OM.PC] Stat 08/08/18 23:44 Peripheral IV Care [RC] . DIRECTED - Assessment/Plan Last 24 Hours: My Active Orders 08/08/18 23:43 EKG Documentation Completion [RC] STAT Sodium Chloride 0.9% [Saline Flush] 10 ml FLUSH ASDIRECTED PRN Peripheral IV Insertion Adult [OM.PC] Stat 08/08/18 23:44 Peripheral IV Care [RC] . DIRECTED
[2018-08-09] MEDS: LORazepam 2 MG/ML Syringe IVPUSH ONE (01:17)
[2018-08-09] MEDS: Ondansetron 4 MG/2 ML SDV IV ONE (01:20)
[2018-08-09] MEDS: LORazepam 0.5 MG Tab ONE (02:25)
== END 2018-08-09 02:23 | disposition home or self-care (01) ==
LOC: DL.ED 23:29
DX: F41.0 Panic disorder [episodic paroxysmal anxiety] (principal); F10.230 Alcohol dependence with withdrawal, uncomplicated; E87.6 Hypokalemia; E83.42 Hypomagnesemia; E11.9 Type 2 diabetes mellitus without complications; I10 Essential (primary) hypertension; F17.210 Nicotine dependence, cigarettes, uncomplicated; Z79.899 Other long term (current) drug therapy
CPT/HCPCS: 36415; 71045; 80053; 80305; 81001; 82962; 83735; 84484; 85025; 93005; 96374; 96375; 99284; A9270; G0480; J2060; J2405

== ENCOUNTER 2018-11-06 21:02 | Emergency (ER) | payer MEDICAID ==
--- NOTE | 2018-11-06 21:12 | EDM.PDOC ---
ED HPI GENERAL MEDICAL PROBLEM - General Stated Complaint: THROAT IS HURTING Time Seen by Provider: 11/06/18 21:11 Source of Information: Reports: Patient History Limitations: Reports: No Limitations - History of Present Illness INITIAL COMMENTS - FREE TEXT/NARRATIVE: Sore throat x 2 weeks, been drinking and smoking heavier the last week No fever or chills. Salt water gargle x1 at home [employer]. States think i burned my throat., Last ETOH at noon. Throat Pain Score (Numeric/FACES): 6 - Related Data Allergies Allergy/AdvReac Type Severity Reaction Status Date / Time No Known Allergies Allergy Verified 11/06/18 21:17 Home Meds: Home Meds atorvaSTATin [Lipitor] 10 mg PO DAILY 10/02/13 [History] metFORMIN [Glucophage] 1,000 mg PO BID 10/02/13 [History] Omeprazole 20 mg PO BID 04/01/14 [History] Jennings Flavor [Jennings Concentrate] 1 cap PO DAILY 05/31/16 [History] Atenolol [Tenormin] 50 mg PO DAILY #90 tablet 11/17/17 [Rx] Losartan Potassium 100 mg PO DAILY #90 11/17/17 [Rx] Gluc 2KCl/Chondr/Reta Hy/Hy Ac [Glucosamine & Chondroitin Cap] 1 each PO DAILY 04/17/18 [History] Multivitamin [Multivitamins] 1 each PO DAILY 04/17/18 [History] QUEtiapine [SEROquel] 150 mg PO BEDTIME 04/17/18 [History] chlordiazePOXIDE [Librium] 25 mg PO Q6H 04/18/18 [History] Past Medical History Other HEENT History: reading glasses Cardiovascular History: Reports: High Cholesterol, Hypertension Respiratory History: Reports: None Gastrointestinal History: Reports: GERD, Hiatal Hernia, Other (See Below) Other Gastrointestinal History: DUNN ESOPHAGUS, alcoholic hepatitis Genitourinary History: Reports: None Musculoskeletal History: Reports: Arthritis, Other (See Below) Other Musculoskeletal History: HX OF ACROMIOCLAVICULAR JOINT SEPERATION; DEGENERATIVE DISC DISEASE, LUMBAR. Shoulder replacement left in march 2014 has hardware Neurological History: Reports: None Psychiatric History: Reports: Addiction, Anxiety, Depression, Panic Attack, Other (See Below) Other Psychiatric History: HX OF ALCOHOL AND TOBACCO HABITUATION Endocrine/Metabolic History: Reports: Diabetes, Type II Hematologic History: Reports: Other (See Below) Other Hematologic History: THROMBOCYTOPENIA Immunologic History: Reports: None Oncologic (Cancer) History: Reports: None Dermatologic History: Reports: None - Infectious Disease History Infectious Disease History: Reports: Chicken Pox - Past Surgical History HEENT Surgical History: Reports: None Cardiovascular Surgical History: Reports: None Respiratory Surgical History: Reports: None GI Surgical History: Reports: Colonoscopy, EGD Male Surgical History: Reports: None Musculoskeletal Surgical History: Reports: Shoulder Replacement Social & Family History - Family History Family Medical History: Noncontributory - Caffeine Use Caffeine Use: Reports: Coffee, Energy Drinks Caffeine Use Comment: pot daily - Living Situation & Occupation Living situation: Reports: Occupation: Unemployed ED ROS ENT - Review of Systems Review Of Systems: ROS reveals no pertinent complaints other than HPI. ED EXAM, ENT - Physical Exam Exam: See Below Exam Limited By: No Limitations General Appearance: Alert, No Apparent Distress, Anxious, Other (strong odor ETOH) Eye Exam: Bilateral Eye: EOMI Ears: Normal External Exam Nose: Normal Inspection Mouth/Throat: Normal Inspection. No: Pharyngeal Erythema, Throat Swelling, Tonsillar Erythema, Tonsillar Exudates, Tonsillar Swelling Head: Atraumatic, Normocephalic Neck: Normal Inspection, Lymphadenopathy (L) Respiratory/Chest: No Respiratory Distress, Lungs Clear, Normal Breath Sounds Cardiovascular: Normal Peripheral Pulses, Regular Rate, Rhythm GI/Abdominal: Normal Bowel Sounds Extremities: Normal Inspection, Normal Range of Motion Course - Vital Signs Last Recorded V/S: Last Vital Signs Temp 97.7 F 11/06/18 21:14 Pulse 78 11/06/18 21:14 Resp 20 11/06/18 21:14 BP 141/83 H 11/06/18 21:14 Pulse Ox 99 11/06/18 21:14 - Orders/Labs/Meds Orders: Active Orders 24 hr Category Date Time Status CULTURE STREP A CONFIRMATION [] Stat Lab 11/06/18 21:10 Results STREP SCRN A RAPID W CULT CONF [] Stat Lab 11/06/18 21:10 Results Departure - Departure Time of Disposition: 21:47 Disposition: Home, Self-Care 01 Condition: Good Clinical Impression: ETOH abuse, Tobacco abuse Pharyngitis Qualifiers: Pharyngitis/tonsillitis etiology: unspecified etiology Qualified Code(s): J02.9 - Acute pharyngitis, unspecified - Discharge Information *PRESCRIPTION DRUG MONITORING PROGRAM REVIEWED*: No *COPY OF PRESCRIPTION DRUG MONITORING REPORT IN PATIENT LUIS: No Instructions: Sore Throat, [id number] Referrals: PCP,None [Primary Care Provider] - Forms: ED Department Discharge Additional Instructions: tylenol 650mg every 4 hours as needed for fdiscomfort increase fluids decrease smoking chloraseptic throat spray as needed clinic follow up - My Orders Last 24 Hours: My Active Orders 11/06/18 21:10 CULTURE STREP A CONFIRMATION [RM] Stat STREP SCRN A RAPID W CULT CONF [] Stat - Assessment/Plan Last 24 Hours: My Active Orders 11/06/18 21:10 CULTURE STREP A CONFIRMATION [RM] Stat STREP SCRN A RAPID W CULT CONF [] Stat
[2018-11-06 21:17] VITALS: BP 141/83
== END 2018-11-06 21:53 | disposition home or self-care (01) ==
LOC: DL.ED 21:02
DX: J02.9 Acute pharyngitis, unspecified (principal); F10.10 Alcohol abuse, uncomplicated; F17.200 Nicotine dependence, unspecified, uncomplicated; K21.9 Gastro-esophageal reflux disease without esophagitis; I10 Essential (primary) hypertension; E78.00 Pure hypercholesterolemia, unspecified; E11.9 Type 2 diabetes mellitus without complications; F41.9 Anxiety disorder, unspecified; F32.9 Major depressive disorder, single episode, unspecified; Z79.899 Other long term (current) drug therapy; Z79.84 Long term (current) use of oral hypoglycemic drugs
CPT/HCPCS: 87081; 87430; 99283

== ENCOUNTER 2019-04-16 23:02 | Emergency (ER) | payer SELFPAY ==
[2019-04-16] MEDS ORDERED: LORazepam 0.5 MG Tab PO ONE (23:03)
[2019-04-16] MEDS ORDERED: MVI, Adult with Vitamin K 10 ML, Folic Acid 1 MG, Thiamine 100 MG in Lactated Ringers 1... IV ONE ×4 (23:32)
[2019-04-16] MEDS ORDERED: LORazepam 2 MG/ML Syringe IVPUSH ONE (23:32)
--- NOTE | 2019-04-16 23:32 | EDM.PDOCBH ---
ED HPI GENERAL MEDICAL PROBLEM - General Chief Complaint: Behavioral/Psych Stated Complaint: ANXIETY ATTACK Time Seen by Provider: 04/16/19 23:32 Source of Information: Reports: Patient, RN, RN Notes Reviewed History Limitations: Reports: No Limitations - History of Present Illness INITIAL COMMENTS - FREE TEXT/NARRATIVE: patient presents to ER with complaint of severe anxiety. Patient states he drinks very heavily on a daily basis. Patient states last drink was at 8:00 this morning. Patient states he would like to stop drinking alcohol. Patient denies nausea, vomiting, tremors, hallucinations. Patient does admit to not feeling well, sweating, and severe anxiety. Onset: Gradual - Related Data Allergies Allergy/AdvReac Type Severity Reaction Status Date / Time No Known Allergies Allergy Verified 04/16/19 23:44 Home Meds: Home Meds atorvaSTATin [Lipitor] 10 mg PO DAILY 10/02/13 [History] metFORMIN [Glucophage] 1,000 mg PO BID 10/02/13 [History] Omeprazole 20 mg PO BID 04/01/14 [History] Jennings Flavor [Jennings Concentrate] 1 cap PO DAILY 05/31/16 [History] Atenolol [Tenormin] 50 mg PO DAILY #90 tablet 11/17/17 [Rx] Losartan Potassium 100 mg PO DAILY #90 11/17/17 [Rx] Glucosam/Chondr/Collagn/Hyalur [Glucosamine & Chondroitin Cap] 1 each PO DAILY 04/17/18 [History] Multivitamin [Multivitamins] 1 each PO DAILY 04/17/18 [History] QUEtiapine [SEROquel] 150 mg PO BEDTIME 04/17/18 [History] chlordiazePOXIDE [Librium] 25 mg PO Q6H 04/18/18 [History] CIWAA - CIWAA CIWAA Nausea And Vomitin - No Nausea and No Vomiting CIWAA Tremor: 1 - Not Visable, but Can Be [place] Fingertip to Fingertip CIWAA Paroxysmal Sweats: 2 CIWAA Anxiety: 4 - Moderately Anxious, or Guarded, so Anxiety is Inferred CIWAA Agitation: 1 -Somewhat More than Normal Activity CIWAA Tactile Disturbances: 0 - None CIWAA Auditory Disturbances: 0 - Not Present CIWAA Visual Disturbances: 0 - Not Present CIWAA Headache, Fullness in Head: 1 - Very Mild CIWAA Orientation And Clouding Of Sensorium: 0 - Oriented and Can do Serial Additions CIWAA Scale Score: 9 Past Medical History Other HEENT History: reading glasses Cardiovascular History: Reports: High Cholesterol, Hypertension Respiratory History: Reports: None Gastrointestinal History: Reports: GERD, Hiatal Hernia, Other (See Below) Other Gastrointestinal History: DUNN ESOPHAGUS, alcoholic hepatitis Genitourinary History: Reports: None Musculoskeletal History: Reports: Arthritis, Other (See Below) Other Musculoskeletal History: HX OF ACROMIOCLAVICULAR JOINT SEPERATION; DEGENERATIVE DISC DISEASE, LUMBAR. Shoulder replacement left in march 2014 has hardware Neurological History: Reports: None Psychiatric History: Reports: Addiction, Anxiety, Depression, Panic Attack, Other (See Below) Other Psychiatric History: HX OF ALCOHOL AND TOBACCO HABITUATION Endocrine/Metabolic History: Reports: Diabetes, Type II Hematologic History: Reports: Other (See Below) Other Hematologic History: THROMBOCYTOPENIA Immunologic History: Reports: None Oncologic (Cancer) History: Reports: None Dermatologic History: Reports: None - Infectious Disease History Infectious Disease History: Reports: Chicken Pox - Past Surgical History HEENT Surgical History: Reports: None Cardiovascular Surgical History: Reports: None Respiratory Surgical History: Reports: None GI Surgical History: Reports: Colonoscopy, EGD Male Surgical History: Reports: None Musculoskeletal Surgical History: Reports: Shoulder Replacement Social & Family History - Family History Family Medical History: Noncontributory - Tobacco Use Smoking Status *Q: Current Every Day Smoker Years of Tobacco use: 44 Packs/Tins Daily: 1 - Caffeine Use Caffeine Use: Reports: Coffee Caffeine Use Comment: pot daily - Alcohol Use Date of Last Drink: 04/16/19 Time of Last Drink: 08:00 - Recreational Drug Use Recreational Drug Use: Yes Drug Use in Last 12 Months: Yes Recreational Drug Type: Reports: Marijuana/Hashish Recreational Drug Use Frequency: Binges Recreational Drug Last Use: t-1 - Living Situation & Occupation Living situation: Reports: Occupation: Unemployed ED ROS GENERAL - Review of Systems Review Of Systems: Comprehensive ROS is negative, except as noted in HPI. ED EXAM, BEHAVIORAL HEALTH - Physical Exam Exam: See Below Exam Limited By: No Limitations General Appearance: Alert, WD/WN, Anxious, Moderate Distress Eye Exam: Bilateral Eye: EOMI, Normal Inspection Ears: Normal External Exam, Hearing Grossly Normal Nose: Normal Inspection Throat/Mouth: Normal Inspection, Normal Voice, No Airway Compromise Head: Atraumatic, Normocephalic Neck: Normal Inspection, Supple, Non-Tender, Full Range of Motion Respiratory/Chest: No Respiratory Distress, Lungs Clear, Normal Breath Sounds, No Accessory Muscle Use, Chest Non-Tender Cardiovascular: Normal Peripheral Pulses, Regular Rate, Rhythm, No Edema, No Gallop, No JVD, No Murmur, No Rub GI/Abdominal: Normal Bowel Sounds, Soft, Non-Tender (Male) Exam: Deferred Rectal (Males) Exam: Deferred Back Exam: Normal Inspection, Full Range of Motion, NT Extremities: Normal Inspection, Normal Range of Motion, Non-Tender, Normal Capillary Refill, No Pedal Edema Neurological: Alert, Normal Mood/Affect, CN II-XII Intact, Normal Cognition, Normal Gait, Normal Reflexes, No Motor/Sensory Deficits, Oriented x 3 Psychiatric: Alert, Normal Affect, Normal Cognition, Normal Mood, Oriented, Restless Skin Exam: Warm, Intact, Normal color, No rash, Diaphoretic COURSE, BEHAVIORAL HEALTH COMP - Course Vital Signs: Last Vital Signs Temp 97.5 F 04/17/19 00:37 Pulse 66 04/17/19 00:37 Resp 18 04/17/19 00:37 BP 171/89 H 04/17/19 00:37 Pulse Ox 97 04/17/19 00:37 Orders, Labs, Meds: Active Orders 24 hr Category Date Time Status Peripheral IV Care [RC] . DIRECTED Care 04/16/19 23:43 Active Sodium Chloride 0.9% [Saline Flush] Med 04/16/19 23:43 Active 10 ml FLUSH ASDIRECTED PRN Peripheral IV Insertion Adult [OM.PC] Stat Oth 04/16/19 23:43 Ordered Medication Orders Sodium Chloride (Saline Flush) 10 ml FLUSH ASDIRECTED PRN PRN Reason: Keep Vein Open Last Admin: 04/16/19 23:32 Dose: 10 ml Laboratory Tests 04/16/19 04/16/19 04/16/19 Range/Units 23:33 23:33 23:33 WBC 7.5 (5.0-10.0) 10^3/uL RBC 4.23 L (4.6-6.2) 10^6/uL Hgb 14.2 (14.0-18.0) g/dL Hct 39.5 L (40.0-54.0) % MCV 93.4 (80-100) fL MCH 33.6 (27.0-34.0) pg MCHC 35.9 H (33.0-35.0) g/dL Plt Count 274 (150-450) 10^3/uL Neut % (Auto) 43.5 (42.2-75.2) % Lymph % (Auto) 39.7 (20.5-50.1) % [place] % (Auto) 14.0 H (2-8) % Eos % (Auto) 1.9 (1.0-3.0) % Baso % (Auto) 0.9 (0.0-1.0) % Sodium (135-145) mmol/L Potassium (3.6-5.0) mmol/L Chloride (101-111) mmol/L Carbon Dioxide (21.0-31.0) mmol/L Anion Gap BUN (7-18) mg/dL Creatinine (0.6-1.3) mg/dL Est Cr Clr Drug Dosing mL/min Estimated GFR (MDRD) BUN/Creatinine Ratio Glucose (74-105) mg/dL Calcium (8.4-10.2) mg/dl Total Bilirubin (0.2-1.0) mg/dL AST (10-42) IU/L ALT (10-60) IU/L Alkaline Phosphatase (42-121) IU/L Total Protein (6.7-8.2) g/dl Albumin (3.2-5.5) g/dl Globulin Albumin/Globulin Ratio Urine Color Yellow (YELLOW) Urine Appearance Slightly cloudy (CLEAR) Urine pH 6.0 (5.0-9.0) Ur Specific [place] >= 1.030 (1.005-1.030) Urine Protein 100 H (NEGATIVE) Urine Glucose (UA) Negative (NEGATIVE) Urine Ketones 15 H (NEGATIVE) Urine Occult Blood Trace-lysed H (NEGATIVE) Urine Nitrite Negative (NEGATIVE) Urine Bilirubin Small H (NEGATIVE) Urine Urobilinogen 1.0 (0.2-1.0) mg/dL Ur Leukocyte Esterase Negative (NEGATIVE) Urine RBC 0-5 /HPF Urine WBC 0-5 (0-5/HPF) /HPF Ur Epithelial Cells Rare (NOT SEEN) /HPF Amorphous Sediment Moderate (NOT SEEN) /HPF Urine Bacteria Few (0-FEW/HPF) /HPF Urine Mucus Few H (NOT SEEN) /LPF Urine Opiates Screen Negative (NEGATIVE) Ur Oxycodone Screen Negative (NEGATIVE) Urine Methadone Screen Negative (NEGATIVE) Ur Barbiturates Screen Negative (NEGATIVE) U Tricyclic Antidepress Negative (NEGATIVE) Ur Phencyclidine Scrn Negative (NEGATIVE) Ur Amphetamine Screen Negative (NEGATIVE) U Methamphetamines Scrn Negative (NEGATIVE) Urine MDMA Screen Negative (NEGATIVE) U Benzodiazepines Scrn Negative (NEGATIVE) Urine Cocaine Screen Negative (NEGATIVE) U Marijuana (THC) Screen Positive H (NEGATIVE) Ethyl Alcohol mg/dL 04/16/19 Range/Units 23:33 WBC (5.0-10.0) 10^3/uL RBC (4.6-6.2) 10^6/uL Hgb (14.0-18.0) g/dL Hct (40.0-54.0) % MCV (80-100) fL MCH (27.0-34.0) pg MCHC (33.0-35.0) g/dL Plt Count (150-450) 10^3/uL Neut % (Auto) (42.2-75.2) % Lymph % (Auto) (20.5-50.1) % [place] % (Auto) (2-8) % Eos % (Auto) (1.0-3.0) % Baso % (Auto) (0.0-1.0) % Sodium 141 (135-145) mmol/L Potassium 3.2 L (3.6-5.0) mmol/L Chloride 106 (101-111) mmol/L Carbon Dioxide 24.0 (21.0-31.0) mmol/L Anion Gap 14.2 BUN 10 (7-18) mg/dL Creatinine 1.1 (0.6-1.3) mg/dL Est Cr Clr Drug Dosing 78.02 mL/min Estimated GFR (MDRD) > 60 BUN/Creatinine Ratio 9.09 Glucose 170 H (74-105) mg/dL Calcium 9.0 (8.4-10.2) mg/dl Total Bilirubin 0.7 (0.2-1.0) mg/dL AST 38 (10-42) IU/L ALT 27 (10-60) IU/L Alkaline Phosphatase 55 (42-121) IU/L Total Protein 7.1 (6.7-8.2) g/dl Albumin 3.9 (3.2-5.5) g/dl Globulin 3.2 Albumin/Globulin Ratio 1.22 Urine Color (YELLOW) Urine Appearance (CLEAR) Urine pH (5.0-9.0) Ur Specific [place] (1.005-1.030) Urine Protein (NEGATIVE) Urine Glucose (UA) (NEGATIVE) Urine Ketones (NEGATIVE) Urine Occult Blood (NEGATIVE) Urine Nitrite (NEGATIVE) Urine Bilirubin (NEGATIVE) Urine Urobilinogen (0.2-1.0) mg/dL Ur Leukocyte Esterase (NEGATIVE) Urine RBC /HPF Urine WBC (0-5/HPF) /HPF Ur Epithelial Cells (NOT SEEN) /HPF Amorphous Sediment (NOT SEEN) /HPF Urine Bacteria (0-FEW/HPF) /HPF Urine Mucus (NOT SEEN) /LPF Urine Opiates Screen (NEGATIVE) Ur Oxycodone Screen (NEGATIVE) Urine Methadone Screen (NEGATIVE) Ur Barbiturates Screen (NEGATIVE) U Tricyclic Antidepress (NEGATIVE) Ur Phencyclidine Scrn (NEGATIVE) Ur Amphetamine Screen (NEGATIVE) U Methamphetamines Scrn (NEGATIVE) Urine MDMA Screen (NEGATIVE) U Benzodiazepines Scrn (NEGATIVE) Urine Cocaine Screen (NEGATIVE) U Marijuana (THC) Screen (NEGATIVE) Ethyl Alcohol < 5 mg/dL Medications Generic Name Dose Route Start Last Admin Trade Name Freq PRN Reason Stop Dose Admin Sodium Chloride 10 ml 04/16/19 23:43 04/16/19 23:32 Saline Flush FLUSH 10 ml ASDIRECTED PRN Administration Keep Vein Open Discontinued Medications Generic Name Dose Route Start Last Admin Trade Name Freq PRN Reason Stop Dose Admin Clonidine HCl 0.1 mg 04/17/19 01:50 Catapres PO 04/17/19 01:51 ONETIME ONE Multivitamins/Minerals 10 ml/ 1,011.2 mls @ 999 mls/hr 04/16/19 23:32 23:41 Folic Acid 1 mg/ Thiamine HCl IV 04/17/19 00:32 999 mls/hr 100 mg/ Lactated Ringer's ONETIME ONE Administration Lorazepam 1 mg 04/16/19 23:32 04/16/19 23:40 Ativan IVPUSH 04/16/19 23:33 1 mg ONETIME ONE Administration Lorazepam Confirm 04/17/19 02:06 Ativan Administered 04/17/19 02:07 Dose 0.5 mg .ROUTE .STK-MED ONE Departure - Departure Time of Disposition: 01:47 Disposition: Home, Self-Care 01 Condition: Fair Clinical Impression: Alcohol abuse, Alcohol withdrawal syndrome - Discharge Information *PRESCRIPTION DRUG MONITORING PROGRAM REVIEWED*: No *COPY OF PRESCRIPTION DRUG MONITORING REPORT IN PATIENT LUIS: No Instructions: What You Need to Know About Alcohol Abuse and Dependence, Adult, Alcohol Withdrawal Syndrome, [id number] Forms: ED Department Discharge Additional Instructions: RX: Lorazepam 0.5mg orally every 4 hours as needed for anxiety Drink plenty of water Follow up with [facility] and your primary care facility tomorrow Return to the ER with any further problems - My Orders Last 24 Hours: My Active Orders 04/16/19 23:43 Peripheral IV Care [RC] . DIRECTED Sodium Chloride 0.9% [Saline Flush] 10 ml FLUSH ASDIRECTED PRN Peripheral IV Insertion Adult [OM.PC] Stat - Assessment/Plan Last 24 Hours: My Active Orders 04/16/19 23:43 Peripheral IV Care [RC] . DIRECTED Sodium Chloride 0.9% [Saline Flush] 10 ml FLUSH ASDIRECTED PRN Peripheral IV Insertion Adult [OM.PC] Stat
[2019-04-16] MEDS ORDERED: Sodium Chloride 0.9% 10 ML Syringe FLUSH PRN (23:43)
[2019-04-17] LABS: ANION GAP 14.2; CHLORIDE,CL 106 mmol/L (101-111); SODIUM,NA 141 mmol/L (135-145)
[2019-04-17 00:38] VITALS: BP 171/89; PULSE 66
[2019-04-17] MEDS ORDERED: cloNIDine 0.1 MG Tab PO ONE (01:50)
[2019-04-17] MEDS ORDERED: LORazepam 0.5 MG Tab ONE (02:06)
== END 2019-04-17 02:31 | disposition home or self-care (01) ==
LOC: DL.ED 23:02
DX: F10.239 Alcohol dependence with withdrawal, unspecified (principal); Y90.0 Blood alcohol level of less than 20 mg/100 ml; F41.9 Anxiety disorder, unspecified; I10 Essential (primary) hypertension; E78.00 Pure hypercholesterolemia, unspecified; K21.9 Gastro-esophageal reflux disease without esophagitis; F17.210 Nicotine dependence, cigarettes, uncomplicated; E11.9 Type 2 diabetes mellitus without complications; Z79.84 Long term (current) use of oral hypoglycemic drugs; Z79.899 Other long term (current) drug therapy
CPT/HCPCS: 36415; 80053; 80305; 80320; 81001; 85025; 96365; 96375; 99283; 99284; A9270; J2060; J3411; J7120; G0480; J3490

== ENCOUNTER 2019-12-23 19:24 | Emergency (ER) | payer MEDICAID ==
[2019-12-23] MEDS ORDERED: Ondansetron 4 MG Tab.DIS PO ONE (19:25)
[2019-12-23 21:17] VITALS: PULSE 76
[2019-12-23 22:03] LABS: ANION GAP 24.3 mEq/L (7-13)
[2019-12-23] MEDS ORDERED: Metoclopramide 10 MG/2 ML SDV IVPUSH ONE (22:56)
[2019-12-23] MEDS ORDERED: Lactated Ringers 1,000 ML IV ONE (22:56)
[2019-12-23 23:19] VITALS: BP 209/108
[2019-12-23] MEDS ORDERED: Iopamidol 612 MG/ML 100 ML Bottle IVPUSH ONE (23:29)
--- NOTE | 2019-12-23 23:38 | EDM.PDOC ---
ED HPI GENERAL MEDICAL PROBLEM - General Chief Complaint: Gastrointestinal Problem Stated Complaint: THROWNING UP ALL DAY Time Seen by Provider: 12/23/19 23:25 Source of Information: Reports: Patient History Limitations: Reports: No Limitations - History of Present Illness INITIAL COMMENTS - FREE TEXT/NARRATIVE: This 54 yo male patient reports to the ED with diffuse abdominal pain and nausea/vomiting. The patient reports he has attempted to take nausea medications from [employer], but has had no symptom improvement. The patient reports he drank alcohol yesterday (6-7 beers) and reports no history of similar symptoms. The patient reports he did have a hernia surgery about 1 month ago. Onset: Today Duration: Constant Location: Reports: Abdomen Quality: Reports: Other Severity: Moderate Improves with: Reports: None Worsens with: Reports: None Context: Reports: Other Associated Symptoms: Reports: Nausea/Vomiting - Related Data Allergies Allergy/AdvReac Type Severity Reaction Status Date / Time No Known Allergies Allergy Verified 12/23/19 21:07 Home Meds: Home Meds atorvaSTATin [Lipitor] 10 mg PO DAILY 10/02/13 [History] metFORMIN [Glucophage] 1,000 mg PO BID 10/02/13 [History] Omeprazole 20 mg PO BID 04/01/14 [History] Jennings Flavor [Jennings Concentrate] 1 cap PO DAILY 05/31/16 [History] Losartan Potassium 100 mg PO DAILY #90 11/17/17 [Rx] atenoloL [Tenormin] 50 mg PO DAILY #90 tablet 11/17/17 [Rx] Glucosam/Chondr/Collagn/Hyalur [Glucosamine & Chondroitin Cap] 1 each PO DAILY 04/17/18 [History] Multivitamin [Multivitamins] 1 each PO DAILY 04/17/18 [History] QUEtiapine [SEROquel] 150 mg PO BEDTIME 04/17/18 [History] chlordiazePOXIDE [Librium] 25 mg PO Q6H 04/18/18 [History] Past Medical History Other HEENT History: reading glasses Cardiovascular History: Reports: High Cholesterol, Hypertension Respiratory History: Reports: None Gastrointestinal History: Reports: GERD, Hiatal Hernia, Other (See Below) Other Gastrointestinal History: DUNN ESOPHAGUS, alcoholic hepatitis Genitourinary History: Reports: None Musculoskeletal History: Reports: Arthritis, Other (See Below) Other Musculoskeletal History: HX OF ACROMIOCLAVICULAR JOINT SEPERATION; DEGENERATIVE DISC DISEASE, LUMBAR. Shoulder replacement left in march 2014 has hardware Neurological History: Reports: None Psychiatric History: Reports: Addiction, Anxiety, Depression, Panic Attack, Other (See Below) Other Psychiatric History: HX OF ALCOHOL AND TOBACCO HABITUATION Endocrine/Metabolic History: Reports: Diabetes, Type II Hematologic History: Reports: Other (See Below) Other Hematologic History: THROMBOCYTOPENIA Immunologic History: Reports: None Oncologic (Cancer) History: Reports: None Dermatologic History: Reports: None - Infectious Disease History Infectious Disease History: Reports: Chicken Pox - Past Surgical History HEENT Surgical History: Reports: None Cardiovascular Surgical History: Reports: None Respiratory Surgical History: Reports: None GI Surgical History: Reports: Colonoscopy, EGD Male Surgical History: Reports: None Musculoskeletal Surgical History: Reports: Shoulder Replacement Social & Family History - Family History Family Medical History: Noncontributory - Tobacco Use Smoking Status *Q: Current Every Day Smoker Years of Tobacco use: 40 Packs/Tins Daily: 1 - Caffeine Use Caffeine Use: Reports: None Caffeine Use Comment: pot daily - Alcohol Use Date of Last Drink: 12/22/19 Time of Last Drink: 22:00 - Recreational Drug Use Recreational Drug Use: No - Living Situation & Occupation Living situation: Reports: Occupation: Unemployed ED ROS GENERAL - Review of Systems Review Of Systems: Comprehensive ROS is negative, except as noted in HPI. ED EXAM, GI/ABD - Physical Exam Exam: See Below Exam Limited By: No Limitations General Appearance: Alert, WD/WN, Moderate Distress Eyes: Bilateral: Normal Appearance, EOMI Ears: Normal External Exam, Normal Canal, Hearing Grossly Normal, Normal TMs Nose: Normal Inspection, Normal Mucosa, No Blood Throat/Mouth: Normal Inspection, Normal Lips, Normal Teeth, Normal Gums, Normal Oropharynx, Normal Voice, No Airway Compromise Head: Atraumatic, Normocephalic Neck: Normal Inspection, Supple, Non-Tender, Full Range of Motion Respiratory/Chest: No Respiratory Distress, Lungs Clear, Normal Breath Sounds, No Accessory Muscle Use, Chest Non-Tender Cardiovascular: Normal Peripheral Pulses, Regular Rate, Rhythm, No Edema, No Gallop, No JVD, No Murmur, No Rub GI/Abdominal Exam: Normal Bowel Sounds, Tender (diffuse tenderness) (Male) Exam: Deferred Rectal (Males) Exam: Deferred Back Exam: Normal Inspection, Full Range of Motion, NT Extremities: Normal Inspection, Normal Range of Motion, Non-Tender, Normal Capillary Refill, No Pedal Edema Neurological: Alert Psychiatric: Normal Affect, Normal Mood Skin Exam: Warm, Dry, Intact, Normal Color, No Rash Lymphatic: No Adenopathy Course - Vital Signs Last Recorded V/S: Last Vital Signs Temp 35.6 C L 12/23/19 23:14 Pulse 76 12/23/19 21:08 Resp 18 12/23/19 23:14 BP 209/108 H 12/23/19 23:14 Pulse Ox 99 12/23/19 23:14 - Orders/Labs/Meds Labs: Laboratory Tests 12/23/19 12/23/19 Range/Units 21:32 21:32 WBC 8.2 (5.0-10.0) 10^3/uL RBC 4.73 (4.6-6.2) 10^6/uL Hgb 15.7 D (14.0-18.0) g/dL Hct 41.7 (40.0-54.0) % MCV 88.2 D (80-100) fL MCH 33.2 (27.0-34.0) pg MCHC 37.6 H (33.0-35.0) g/dL Plt Count 274 (150-450) 10^3/uL Neut % (Auto) 72.8 (42.2-75.2) % Lymph % (Auto) 17.9 L (20.5-50.1) % [place] % (Auto) 8.8 H (2-8) % Eos % (Auto) 0.0 L (1.0-3.0) % Baso % (Auto) 0.5 (0.0-1.0) % Sodium 136 (136-145) mmol/L Potassium 3.3 L (3.5-5.1) mmol/L Chloride 98 (98-107) mmol/L Carbon Dioxide 17 L (21-32) mmol/L Anion Gap 24.3 H (7-13) mEq/L BUN 14 (7-18) mg/dL Creatinine 1.25 (0.70-1.30) mg/dL Est Cr Clr Drug Dosing 66.77 mL/min Estimated GFR (MDRD) 60 BUN/Creatinine Ratio 11.2 (No establ ref range) Glucose 317 H (74-99) mg/dL Calcium 8.5 (8.5-10.1) mg/dL Total Bilirubin 0.8 (0.2-1.0) mg/dL AST 87 H (15-37) U/L ALT 121 H (16-63) U/L Alkaline Phosphatase 75 (46-116) U/L Total Protein 7.7 (6.4-8.2) g/dL Albumin 4.1 (3.4-5.0) g/dL Globulin 3.6 Albumin/Globulin Ratio 1.1 Amylase 79 (25-115) U/L Lipase 583 H (73-393) U/L Meds: Medications Discontinued Medications Generic Name Dose Route Start Last Admin Trade Name Freq PRN Reason Stop Dose Admin Lactated Ringer's 1,000 mls @ 999 mls/hr 12/23/19 22:56 12/23/19 23:10 Ringers, Lactated IV 12/23/19 23:56 999 mls/hr .BOLUS ONE Administration Iopamidol 100 ml 12/23/19 23:29 12/24/19 00:18 Isovue-300 (61%) IVPUSH 12/23/19 23:30 100 ml ONETIME ONE Administration Metoclopramide HCl 10 mg 12/23/19 22:56 12/23/19 23:12 Reglan IVPUSH 12/23/19 22:57 10 mg ONETIME ONE Administration Departure - Departure Time of Disposition: :20 Disposition: Home, Self-Care 01 Condition: Fair Clinical Impression: Gastritis Qualifiers: Gastritis type: unspecified gastritis Chronicity: acute Gastritis bleeding: without bleeding Qualified Code(s): K29.00 - Acute gastritis without bleeding - Discharge Information *PRESCRIPTION DRUG MONITORING PROGRAM REVIEWED*: Not Applicable *COPY OF PRESCRIPTION DRUG MONITORING REPORT IN PATIENT LUIS: Not Applicable Instructions: Gastritis, Adult, [id number] Forms: ED Department Discharge Care Plan Goals: The patient was advised of the examination results during the visit. The patient was given an IV dose of Reglan while in the ED. The patient was discharged with Zofran ODT (4 mg) #2 to take 1 by mouth every 6 hours as needed and a script for Zofran (4 mg) #20 to take 1 by mouth every 6 hours as needed. The patient was encouraged to stick to a BRAT diet (Bananas, Rice, Applesauce and [place]) over the next 24 hours with small frequent sips of fluid. If the patient has any additional symptoms or concerns, the patient should either return to the emergency department or visit his primary care facility. Sepsis Event Note (ED) - Evaluation Sepsis Screening Result: No Definite Risk - Focused Exam Vital Signs: Vital Signs Temp Pulse Resp BP Pulse Ox 12/23/19 23:14 35.6 C L 18 209/108 H 99 12/23/19 21:08 35.8 C L 76 16 200/117 H 100
--- NOTE | 2019-12-24 01:14 | CT ---
PROCEDURE INFORMATION: Exam: CT Abdomen And Pelvis With Contrast Exam date and time: 12/24/2019 12:34 AM Age: 54 years old Clinical indication: Nausea and vomiting; Additional info: Abdominal pain with nausea/vomiting TECHNIQUE: Imaging protocol: Computed tomography of the abdomen and pelvis with intravenous contrast. Radiation optimization: All CT scans at this facility use at least one of these dose optimization techniques: automated exposure control; mA and/or kV adjustment per patient size (includes targeted exams where dose is matched to clinical indication); or iterative reconstruction. Contrast material: [id number]; Contrast volume: 100 ml; Contrast route: INTRAVENOUS (IV); COMPARISON: CT Abdomen Pelvis wo Cont 11/16/2019 9:34 AM FINDINGS: Liver: Normal. No mass. Gallbladder and bile ducts: Nonspecific gallbladder distention. This could represent fasting status of patient. There is a small calcification in the wall of the gallbladder fundus. This was present on prior study 11/16/2019. Pancreas: Normal. No ductal dilation. Spleen: Normal. No splenomegaly. Adrenals: Nonspecific fullness of the adrenal limbs bilaterally may represent adrenal hyperplasia. Kidneys and ureters: Normal. No hydronephrosis. Stomach and bowel: Severe gastric wall thickening. Gastric body measuring up to 4 cm in thickness. Significance of this is uncertain. Differential diagnosis would include gastritis versus an infiltrating neoplastic process such as lymphoma. There is no evidence of gastric outlet obstruction. Small bowel loops are unremarkable. There is severe diverticulosis of the sigmoid colon. There is no acute diverticulitis evident currently. Appendix: Normal appendix. Intraperitoneal space: Unremarkable. No free air. No significant fluid collection. Vasculature: Unremarkable. No abdominal aortic aneurysm. Lymph nodes: No retroperitoneal or intra-abdominal adenopathy. Bladder: Unremarkable as visualized. Reproductive: Unremarkable as visualized. Bones/joints: Degenerative lumbar spine disease. Soft tissues: Mild edema in the left inguinal region. Recommend clinical correlation. Patient previously was noted to have a fat containing inguinal hernia. This appears to have regressed. There is a small amount of fluid and a single air bubble in the left inguinal canal. Patient may have had surgical repair. Recommend clinical correlation.. IMPRESSION: 1. Severe gastric wall thickening. Differential diagnosis would include gastritis versus an infiltrating neoplastic process or lymphoma. No gastric outlet obstruction. 2. Interval change of left inguinal hernia since previous study 11/16/2019. There is now adjacent subcutaneous fat stranding and minor fluid. There is also a single air bubble within the inguinal canal. Patient may have had interval herniorrhaphy since 11/16/2019. Recommend clinical correlation. 3. Severe diverticulosis of the sigmoid colon. No features of acute diverticulitis. 4. Possible bilateral adrenal hyperplasia.
[2019-12-24] MEDS ORDERED: Ondansetron 4 MG Tab.DIS ONE (01:35)
== END 2019-12-24 01:29 | disposition home or self-care (01) ==
LOC: DL.ED 19:24
DX: K29.00 Acute gastritis without bleeding (principal); E78.00 Pure hypercholesterolemia, unspecified; I10 Essential (primary) hypertension; F41.9 Anxiety disorder, unspecified; F32.9 Major depressive disorder, single episode, unspecified; K21.9 Gastro-esophageal reflux disease without esophagitis; E11.9 Type 2 diabetes mellitus without complications; F17.210 Nicotine dependence, cigarettes, uncomplicated; Z79.84 Long term (current) use of oral hypoglycemic drugs; Z79.899 Other long term (current) drug therapy
CPT/HCPCS: 36415; 74177; 80053; 82150; 83690; 85025; 96360; 99283; A9270; J2765; J7120; Q9967